=== PATIENT | female | born 1950 | race Caucasian/White ===

== ENCOUNTER 2024-01-08 07:34 | Outpatient (AMB) | payer MEDICARE, BC, SELFPAY ==
--- NOTE | 2024-01-08 07:36 | A.OFFPC_ITS ---
Vital Signs 01/08/24 07:37 Height 5 ft 4.5 in Weight 163 lb BMI 27.5 BP 118/74 Blood Pressure Location Lt brachial Position Sitting Pulse 71 Pulse Source Pulse Oximeter Pulse Oximetry (%) 97 Oxygen Delivery Method Room Air Intake Visit Reasons: PHYSICIST L[facility] AND OPTICS-req physical Intake Note: Pt is here today for New patient visit PE. Allergies amoxicillin Allergy (Verified 01/08/24 07:40) Hives Medication List - Last Reconciled 01/08/24 by Rae Childress MD azelaic acid 15% 1 appl topical BID [bio keely dhea spray PO] [calcium 600 mg x 2] clobetasol 0.05% 1 appl topical DAILY PRN [hair restore PO] ketoconazole 2% 1 appl topical BID metronidazole 0.75% 1 appl topical BID bi-Ca-isc-bexo-shtit-pbkdqmfiz 3-200-400 mg-mcg-mg tabs PO romosozumab-aqqg (Evenity) mg subcut saw palmetto PO [sciatic nerve formula PO] tocilizumab (Actemra) 162 mg subcut Q2W [virgin coconut oil 1,000 mg once a day] [viviscal PO] Tobacco use date assessed: 01/08/24 Fall risk assessment: No Falls in past year Last assessed Fall Risk: 01/08/24 Dental Screening Dental Screen Date: 01/08/24 Did you have a dental visit in the last 12 months?: Yes Did you have a dental problem in the last 6 months where you did not have access to dental care?: No Was dental information given to patient?: Patient has dentist HPI PHYSICIST LIGHT AND OPTICS-req physical HPI Details Pt presents for PHYSICIST LIGHT AND OPTICS PE. PMH includes giant cell arteritis osteoporosis and f/u with Rheumatology at [facility]. PFSH Surgical History (Updated 01/08/24 @ 08:01 by Rae Childress MD) History of bilateral carpal tunnel release History of partial hysterectomy Family History (Updated 01/08/24 @ 07:50 by Martine Hutton Abrahan) Father Diabetes Substance use disorder Mother No problems noted. Brother Cancer Social History (Updated 01/08/24 @ 08:03 by Rae Childress MD) Household Members Other:: lives with , 2 sons, Housing: House Patient Tobacco Use Status: Never used Tobacco e-Cigarette/Vaping Use: Never Used service: No Current occupational status: retired Cognitive needs: No Hearing needs: No Vision needs: Yes Questionnaire PHQ-9 Over the last 2 weeks, how often have you been bothered by any of the following problems? 1. Little interest or pleasure in doing things: not at all 2. Feeling down, depressed, or hopeless: not at all 3. Trouble falling or staying asleep, or sleeping too much: several days 4. Feeling tired or having little energy: several days 5. Poor appetite or overeating: several days 6. Feeling bad about yourself - or that you are a failure or have let yourself or your family down: not at all 7. Trouble concentrating on things, such as reading the newspaper or watching television: not at all 8. Moving or speaking so slowly that other people could have noticed. Or the opposite - being so fidgety or restless that you have been moving around a lot more than usual: not at all 9. Thoughts that you would be better off or of hurting yourself in some way: not at all Total score: 3 Depression Screening Interpretation: Negative Depression Screening Done: Yes Source: Developed by Drs. Raymundo Uriarte, Hoa Cardona, Shen Trujillo and colleagues, with an educational brittney from [employer]. Thrive Questionnaire Date Thrive assessed: 01/08/24 I am a: Patient What is your living situation today?: I have a steady place to live Within the past 12 months, did the food you bought not last and you didn't have the money to get more?: Never true Within the past 12 months, did you worry whether your food would run out before you got money to buy more?: Never true Do you have trouble paying for medicines?: No Do you have trouble getting transportation to medical appointments?: No Do you have trouble paying your heating and electricity bill?: No Do you have trouble taking care of your child, family member or friend?: No Do you have trouble with day-to-day activities such as bathing, preparing meals, shopping, managing finances, etc.?: No Are you currently unemployed and looking for a job?: No Are you interested in more education?: No Please select the resources that you would like help with: None THRIVE Score: 0 AUDIT C Alcohol Use Questionnaire (AUDIT-C) 1. How often do you have a drink containing alcohol?: Never 3. How often do you have six or more drinks on one occasion?: Never Total Score: 0 CAROL-7 AMB Questionnaire CAROL-7 Date CAROL - 7 assessed: 01/08/24 Feeling nervous, anxious, or on edge: 0 = Not at all Not being able to stop or control worryin = Not at all Worrying too much about different things: 0 = Not at all Trouble relaxin = Not at all Being so restless that it is hard to sit still: 0 = Not at all Becoming easily annoyed or irritable: 0 = Not at all Feeling afraid as if something awful might happen: 0 = Not at all Total CAROL-7 score (0-4 normal; 5-9 mild; 10-14 moderate; 15-21 severe): 0 Source: Developed by Drs. Raymundo Uriarte, Hoa Cardona, Shen Trujillo and colleagues, with an educational brittney from [employer]. Review of Systems Const All systems reviewed & are unremarkable except as noted in HPI and below Reports no additional complaints Eyes Reports no additional complaints ENT Reports no additional complaints Card Reports no additional complaints Resp Reports no additional complaints GI Reports no additional complaints Reports no additional complaints Musc Reports no additional complaints Physical exam (Primary Care) Vital Signs: Last Vital Signs Pulse 71 01/08/24 07:37 BP 118/74 01/08/24 07:37 Pulse Ox 97 01/08/24 07:37 Oxygen Delivery Method Room Air 01/08/24 07:37 BMI result Body Mass Index 27.5 Tobacco/Smoking Status: Tobacco use Status Tobacco use date assessed 01/08/24 01/08/24 07:53 Patient Tobacco Use Status Never used Tobacco 01/08/24 08:03 e-Cigarette/Vaping Use Never Used 01/08/24 08:03 PHQ-9: PHQ-9 Score PHQ-9: Total score 3 01/08/24 07:59 Depression Screening Interpretation: Negative Thrive Assessment: Date of Thrive Assessment Date Thrive assessed 01/08/24 01/08/24 07:53 Const General: well developed HENMT Head: Yes normal to inspection General nose exam: Normal external nose present Neck Neck: Yes no lymphadenopathy and Yes supple Resp Effort & Inspection: normal respiratory effort Auscultation: clear to auscultation bilaterally Cardio Rhythm: regular rhythm Heart sounds: S1 normal heart sound present and S2 normal heart sound present GI Inspection: Yes normal to inspection Palpation (GI): Soft to palpation Percussion: Yes normal to percussion Auscultation: normal bowel sounds Assessment and Plan Assessment & Plan (1) Annual physical exam: Code(s): Z00.00 - Encounter for general adult medical examination without abnormal findings Plan: Well-balanced diet regular physical activity discussed with the patient she will obtain medical records from previous PCP and public affairs manager. Obtain basic blood work today. For chronic knee pain obtain x-rays of both knees. (2) Hx of colonoscopy: Comment: 2020, Dr. Coe normal Code(s): Z98.890 - Other specified postprocedural states (3) Osteoporosis: Comment: DEXA by Rheumatology, being treated with Evenity Code(s): M81.0 - Age-related osteoporosis without current pathological fracture Plan: Obtain records from Rheumatology (4) Giant cell arteritis: Comment: 04/2023 f/u with Rheumatology Code(s): M31.6 - Other giant cell arteritis Plan: On prednisone taper by Rheumatology Orders: Orders XR knee standing BI Today M31.6 - Other giant cell arteritis, Z00.00 - Encounter for general adult medical examination without abnormal findings Comprehensive [place]. Panel Fast Today M31.6 - Other giant cell arteritis, Z00.00 - Encounter for general adult medical examination without abnormal findings TSH reflex Free T4 Today M31.6 - Other giant cell arteritis, Z00.00 - Encounter for general adult medical examination without abnormal findings Lipid Panel Today M31.6 - Other giant cell arteritis, Z00.00 - Encounter for general adult medical examination without abnormal findings Complete Blood Count Auto Diff Today M31.6 - Other giant cell arteritis, Z00.00 - Encounter for general adult medical examination without abnormal findings Vitamin D 25-OH Total Today M31.6 - Other giant cell arteritis, Z00.00 - Encounter for general adult medical examination without abnormal findings Coding Level of Care Code New Pt Prev Care >65yr (58967) Diagnoses Annual physical exam Z00.00 Hx of colonoscopy Z98.890 Osteoporosis M81.0 Giant cell arteritis M31.6
[2024-01-08 07:37] VITALS: BP 118/74; PULSE 71; O2SAT 97; BMI 27.5
== END 2024-01-08 08:17 | disposition home or self-care (01) ==
PROVIDERS: PCP Internal Medicine; Visit Provider Internal Medicine
DX: Z00.00 Encounter for general adult medical examination without abnormal findings (principal); Z98.890 Other specified postprocedural states; M81.0 Age-related osteoporosis without current pathological fracture; M31.6 Other giant cell arteritis
CPT/HCPCS: 99387

== ENCOUNTER 2024-01-08 08:19 | Outpatient (REF) | payer MEDICARE, BC, SELFPAY ==
--- NOTE | ~2024-01-08 | XR_ITS ---
EXAMINATION: XR KNEE AP STANDING CLINICAL INFORMATION: Bilateral knee pain COMPARISON: None available. TECHNIQUE: AP bilateral standing view of the knees was obtained. FINDINGS: No significant joint space narrowing in the medial or lateral compartments of either knee. No obvious fracture on this single view. XR/XR knee standing BI IMPRESSION: No significant joint space narrowing in either knee.
--- NOTE | ~2024-01-08 | XR_ITS ---
EXAMINATION: XR CHEST CLINICAL INFORMATION: General adult medical examination. COMPARISON: None available. TECHNIQUE: 2 views of the chest were obtained. FINDINGS: Prominent cardiomediastinal silhouette. Mild central bronchovascular engorgement. No dense consolidation. No pleural effusion. No pneumothorax. No acute osseous findings. Thoracic spondylosis. Visualized upper abdomen is within normal limits. XR/XR chest 2V IMPRESSION: 1. Central bronchovascular engorgement that could indicate pulmonary venous congestion. 2. No consolidation or pleural effusion. 3. Mildly prominent cardiomediastinal silhouette that reflect mild cardiomegaly. Recommend cardiology referral.
[2024-01-08 10:23] LABS: MANUAL DIFF FLAG NO
[2024-01-08 10:34] LABS: Basophils Percent Auto 0.8 % (0-2); Eosinophils Absolute Auto 0.4 X10*3/uL (0.0-0.4); Hematocrit 39.9 % (37.0-47.0); Hemoglobin 13.6 g/dl (12.0-16.0); Lymphocytes Absolute Auto 1.4 X10*3/uL (1.2-4.9); Mean Corpuscular HGB Conc 34.1 g/dl (31.0-35.0); Mean Corpuscular Hemoglobin 32.8 pg (27.0-33.0); Mean Corpuscular Volume 96.1 fL (80.0-98.0); Mean Platelet Volume 10.7 fL (9.4-12.3); Monocytes Absolute Auto 0.4 X10*3/uL (0.1-1.2); Monocytes Percent Auto 10.5 % (2-11); Neutrophils Absolute Auto 1.7 x10*3/uL (2.0-8.3); Neutrophils Percent Auto 42.7 % (45-73); Platelet Count 217 X10*3/uL (160-400); Red Blood Count 4.15 X10*6/uL (4.20-5.50); Red Cell Distribution Width 11.9 % (11.0-16.0); White Blood Count 3.9 X10*3/uL (4.8-10.8)
[2024-01-08 10:51] LABS: Alanine Aminotransferase 21 U/L (0-31); Alkaline Phosphatase 113 U/L (39-117); Anion Gap 10 (12-20); Aspartate Amino Transferase 18 U/L (5-31); Bilirubin Total 0.4 mg/dL (0.0-1.0); Blood Urea Nitrogen 12 mg/dL (9-16); Calcium 9.2 mg/dL (8.4-10.2); Carbon Dioxide 26 mmol/L (22-29); Chloride 108 mmol/L (96-108); Cholesterol 225 mg/dL (<200); Estimated Glomerular Filt Rate > 60; Glucose Fasting 99 mg/dL (60-99); HDL Cholesterol 80 mg/dL (>40); LDL Cholesterol Calculated 134 mg/dL (<100); Potassium 3.9 mmol/L (3.3-5.1); Sodium 140 mmol/L (135-145); Total Protein 6.2 g/dL (6.5-8.0); Triglycerides 56 mg/dL (<150)
[2024-01-08 10:58] LABS: TSH reflex Free T4 1.84 uIU/mL (0.32-4.0); Vitamin D 25-OH Total 37.4 ng/mL (>30)
== END 2024-01-08 08:20 | disposition home or self-care (01) ==
LOC: HO.HMGCX 08:19
PROVIDERS: PCP Internal Medicine; Visit Provider Internal Medicine
DX: M25.561 Pain in right knee (principal); M25.562 Pain in left knee; M31.6 Other giant cell arteritis; I51.7 Cardiomegaly; Z92.89 Personal history of other medical treatment; Z98.890 Other specified postprocedural states; Z13.6 Encounter for screening for cardiovascular disorders; Z00.00 Encounter for general adult medical examination without abnormal findings
CPT/HCPCS: 36415; 71046; 73565; 80053; 80061; 82306; 84443; 85025

== ENCOUNTER → 2024-01-22 12:41 | Outpatient (REF) | payer MEDICARE, BC, SELFPAY ==
--- NOTE | 2024-01-22 12:50 | CA_ITS ---
Transthoracic Echocardiogram Patient (Last, First, Middle): Cynthia Wade, Gender: Female Date of : 1950 Age: 73 Procedure Date: 01/22/2024 Procedure Type: Transthoracic Echocardiogram Location: OP Height: 162.56 cm Weight: 72.58 kg BSA: 1.78 m2 Heart Rate: bpm BP: 118 / 74 mmHg Assembly Loader: RUIZ Referring MD: Rae Childress MD Symptoms: I51.7 - Cardiomegaly Study Quality: Fair ECG Rhythm: Sinus Conclusions: - The left ventricular systolic function is normal. The calculated ejection fraction is 57% by biplane method. - No obvious valvular pathology seen on this study. Findings Left Ventricle Normal left ventricular cavity size. There is mildly increased left ventricular wall thickness. The left ventricular systolic function is normal. The calculated ejection fraction is 57% by biplane method. There is no evidence of regional wall motion abnormalities. Evidence suggests grade I (mild) diastolic dysfunction. Right Ventricle Normal right ventricular cavity size and systolic function. Atria Both atria are normal in size. Aortic Valve There is a normal trileaflet aortic valve. There is no aortic valve stenosis. There is no aortic valve regurgitation. Mitral Valve The mitral valve appears normal. There is trace mitral valve regurgitation. There is no mitral valve stenosis. Pulmonic Valve The pulmonic valve is likely normal. Tricuspid Valve There is trace tricuspid valve regurgitation. There is no evidence of pulmonary hypertension. Great Vessels The asc aorta and aortic arch are normal in size. Venous The inferior vena cava is normal in size. Pericardium/Pleural There is no evidence of pericardial effusion. Prior Study Comparison No prior study available for comparison. Recommendations, Care & Conclusions No obvious valvular pathology seen on this study. Measurements 2D Linear Measurements IVSd: 1.16 0.6-0.9/0.6-1.0 cm LVIDd: 3.99 3.9-5.3/4.2-5.9 cm LVIDd Index: 2.24 2.4-3.2/2.2-3.1 cm/m2 LVIDs: 2.76 2.0-3.6 cm LVPWd: 1.11 0.7-1.1 cm Ao Root: 3.10 2.1-3.5 cm LA Diam: 3.50 2.7-3.8/3.0-4.0 cm LAIDs Index: 1.97 1.5-2.3 cm/m2 LV Mass: 189.06 67-162/88-224 g LV Mass Index: 106.22 43-95/49-115 g/m2 LVOT Diam: 2.00 3.0+(-)1.3 cm 2D Systolic Function EF 4C: 55.80 >55% EF 2C: 58.50 >55% EF BiP: 56.90 >55% Mitral Valve MV Pk E: 0.60 MV PK A: 0.77 MV Decel Time: 331.00 E/A: 0.80 E'Lateral: 6.85 E'Medial: 4.46 E/E' Med: 13.40 E/E' Lat: 8.70 PHT: 97.00 MVA PHT: 2.27 Decel [place]: 1.80 Aortic Valve AoV Pk Param: 1.21 AoV Mn Param: 0.80 AoV VTI: 0.25 AoV Pk Grad: 6.00 Aov Mn Grad: 3.00 TONY Cont.VTI: 2.88 LVOT LVOT Pk Param: 0.93 LVOT Mn Param: 0.61 LVOT VTI: 0.23 LVOT Pk Grad: 3.00 LVOT Mn Grad: 2.00 LVOT Diam: 2.00 LVOT Area: 3.14 Diastolic Function MV Pk E: 0.60 MV Pk A: 0.77 E/A: 0.80 E'Medial: 4.46 E/E' Med: 13.40 E' Laterial: 6.85 E/E' Lat: 8.70 Right Ventricle TAPSE (mm): 19.10 TVS' Param: 10.60 Tricuspid Valve TR Pk Param: 1.83 TR Pk Grad: 13.00 RA Press: 3.00 RVSP: 16.00 Great Vessels Aorta Ao Root-2D: 3.10 2.0-3.7 cm Ao Asc: 3.00 2.1-3.4 cm Ao Arch: 2.80 Updated in Other Vendor System with Status of Final Armando Fagan MD electronically signed on 01/23/2024 12:17:42 PM with status of Final
== END ==
LOC: HO.CARD 12:41
PROVIDERS: PCP Internal Medicine; Visit Provider Internal Medicine
DX: I51.7 Cardiomegaly (principal)
CPT/HCPCS: 93306

== ENCOUNTER → 2024-01-22 12:50 | Outpatient (BNV) | payer MEDICARE, BC, SELFPAY | PROVIDERS: PCP Internal Medicine; Visit Provider Internal Medicine | DX: I51.89 Other ill-defined heart diseases (principal) | CPT/HCPCS: 93306 ==

== ENCOUNTER 2024-03-10 09:58 | Outpatient (AMB) | payer MEDICARE, BC, SELFPAY ==
[2024-03-10 10:18] VITALS: BP 118/66; PULSE 82; O2SAT 98; BMI 26.7
--- NOTE | 2024-03-10 10:18 | A.OFFPC_ITS ---
Vital Signs 03/10/24 10:18 Height 5 ft 4.5 in Weight 158 lb BMI 26.7 BP 118/66 Blood Pressure Location Rt brachial Position Sitting Pulse 82 Pulse Source Pulse Oximeter Pulse Oximetry (%) 98 Oxygen Delivery Method Room Air Intake Visit Reasons: Pre-Op Cataract extraction Intake Note: Pt is here today for a pre op visit. Pt is having cataract surgery on 04/15/24. Allergies amoxicillin Allergy (Verified 03/10/24 10:26) Hives doxycycline Allergy (Verified 03/10/24 10:26) upset stomach Medication List - Last Reconciled 03/10/24 by Rae Childress MD azelaic acid 15% 1 appl topical BID azithromycin 2 tabl qd for 1 day, then 1 qd orally; [bio keely dhea spray PO] [calcium 600 mg x 2] clobetasol 0.05% 1 appl topical DAILY PRN [hair restore PO] ketoconazole 2% 1 appl topical BID metronidazole 0.75% 1 appl topical BID ys-Tn-nrm-qnek-hbkjo-dytjcazjl 3-200-400 mg-mcg-mg tabs PO romosozumab-aqqg (Evenity) mg subcut saw palmetto PO [sciatic nerve formula PO] tocilizumab (Actemra) 162 mg subcut Q2W triamcinolone acetonide 0.025% 1 appl topical DAILY [virgin coconut oil 1,000 mg once a day] [viviscal PO] Tobacco use date assessed: 03/10/24 Dental Screening Dental Screen Date: 01/08/24 HPI Pre-Op Cataract extraction HPI Details Pt presents for pre op for cataract surgery. Pt c/o 2 days of sore throat, congestion and dry cough. Pt denies fever, chills, pleurisy. PFSH Surgical History History of bilateral carpal tunnel release History of partial hysterectomy Family History Father Diabetes Substance use disorder Mother No problems noted. Brother Cancer Social History Household Members Other:: lives with , 2 sons, Housing: House Patient Tobacco Use Status: Never used Tobacco e-Cigarette/Vaping Use: Never Used service: No Current occupational status: retired Cognitive needs: No Hearing needs: No Vision needs: Yes Questionnaire PHQ-9 Over the last 2 weeks, how often have you been bothered by any of the following problems? 1. Little interest or pleasure in doing things: not at all 2. Feeling down, depressed, or hopeless: not at all 3. Trouble falling or staying asleep, or sleeping too much: not at all 4. Feeling tired or having little energy: not at all 5. Poor appetite or overeating: not at all 6. Feeling bad about yourself - or that you are a failure or have let yourself or your family down: not at all 7. Trouble concentrating on things, such as reading the newspaper or watching television: not at all 8. Moving or speaking so slowly that other people could have noticed. Or the opposite - being so fidgety or restless that you have been moving around a lot more than usual: not at all 9. Thoughts that you would be better off or of hurting yourself in some way: not at all Total score: 0 Depression Screening Interpretation: Negative Depression Screening Done: Yes 63670 - PHQ-9 Billing: Yes Source: Developed by Drs. Raymundo Uriarte, Hoa Cardona, Shen Trujillo and colleagues, with an educational brittney from [employer]. Thrive Questionnaire Date Thrive assessed: 03/03/24 I am a: Patient What is your living situation today?: I have a steady place to live Within the past 12 months, did the food you bought not last and you didn't have the money to get more?: Never true Within the past 12 months, did you worry whether your food would run out before you got money to buy more?: Never true Do you have trouble paying for medicines?: No Do you have trouble getting transportation to medical appointments?: No Do you have trouble paying your heating and electricity bill?: No Do you have trouble taking care of your child, family member or friend?: No Do you have trouble with day-to-day activities such as bathing, preparing meals, shopping, managing finances, etc.?: No Are you currently unemployed and looking for a job?: No Are you interested in more education?: No Please select the resources that you would like help with: None Currently or been in a relationship where the following occur: No concerns reported THRIVE Score: 0 AUDIT C Alcohol Use Questionnaire (AUDIT-C) 1. How often do you have a drink containing alcohol?: Never Total Score: 0 CAROL-7 AMB Questionnaire CAROL-7 Date CAROL - 7 assessed: 03/10/24 Feeling nervous, anxious, or on edge: 0 = Not at all Not being able to stop or control worryin = Not at all Worrying too much about different things: 0 = Not at all Trouble relaxin = Not at all Being so restless that it is hard to sit still: 0 = Not at all Becoming easily annoyed or irritable: 0 = Not at all Feeling afraid as if something awful might happen: 0 = Not at all Total CAROL-7 score (0-4 normal; 5-9 mild; 10-14 moderate; 15-21 severe): 0 Source: Developed by Drs. Rayumndo Uriarte, Hoa Cardona, Shen Trujillo and colleagues, with an educational brittney from [employer]. Review of Systems Const All systems reviewed & are unremarkable except as noted in HPI and below Reports no additional complaints Eyes Reports no additional complaints ENT Reports no additional complaints Resp Reports no additional complaints GI Reports no additional complaints Reports no additional complaints Musc Reports no additional complaints Physical exam (Primary Care) Vital Signs: Last Vital Signs Pulse 82 03/10/24 10:18 BP 118/66 03/10/24 10:18 Pulse Ox 98 03/10/24 10:18 Oxygen Delivery Method Room Air 03/10/24 10:18 BMI result Body Mass Index 26.7 Tobacco/Smoking Status: Tobacco use Status Tobacco use date assessed 03/10/24 03/10/24 10:29 Patient Tobacco Use Status Never used Tobacco 03/10/24 10:18 e-Cigarette/Vaping Use Never Used 03/10/24 10:18 PHQ-9: PHQ-9 Score PHQ-9: Total score 0 03/10/24 10:31 Depression Screening Interpretation: Negative Thrive Assessment: Date of Thrive Assessment Date Thrive assessed 03/03/24 03/10/24 10:18 Currently or been in a relationship where the following occur: No concerns reported Const General: no acute distress HENMT Head: Yes normal to inspection Ears: TM's normal bilaterally Throat: Yes posterior oropharynx normal Eyes General: appearance normal, both eyes and all related structures Neck Neck: Yes no lymphadenopathy and Yes supple Resp Effort & Inspection: normal respiratory effort Auscultation: clear to auscultation bilaterally Cardio Rhythm: regular rhythm Heart sounds: S1 normal heart sound present and S2 normal heart sound present GI Inspection: Yes normal to inspection Palpation (GI): Soft to palpation Assessment and Plan Assessment & Plan (1) Cataract: Code(s): H26.9 - Unspecified cataract Plan: PATIENT IS MEDICALLY CLEARED FOR CATARACT SURGERY (2) URI (upper respiratory infection): Code(s): J06.9 - Acute upper respiratory infection, unspecified Plan: Supportive care discussed with the patient Orders: Orders SARS-CoV2/FLU/RSV Today J06.9 - Acute upper respiratory infection, unspecified Medications: New azithromycin 2 tabl qd for 1 day, then 1 qd orally; 6 tabs 0RF Coding Level of Care Code Est Pt Level 3 (31029) Diagnoses Cataract H26.9 URI (upper respiratory infection) J06.9
== END 2024-03-10 13:51 | disposition home or self-care (01) ==
PROVIDERS: PCP Internal Medicine; Visit Provider Internal Medicine
DX: H26.9 Unspecified cataract (principal); J06.9 Acute upper respiratory infection, unspecified
CPT/HCPCS: 99213

== ENCOUNTER 2024-03-10 11:33 | Outpatient (REF) | payer MEDICARE, BC, SELFPAY ==
[2024-03-10 14:29] LABS: Influenza A PCR NEGATIVE (Negative); Influenza B PCR NEGATIVE (Negative); Resp Syncy Virus RNA Qual PCR NEGATIVE (Negative); SARS COV2 PCR INHOUSE NEGATIVE (Negative)
== END 2024-03-10 11:34 | disposition home or self-care (01) ==
LOC: HO.LAB 11:33
PROVIDERS: Visit Provider Internal Medicine
DX: J06.9 Acute upper respiratory infection, unspecified (principal)
CPT/HCPCS: 0241U

== ENCOUNTER 2024-05-10 09:18 | Outpatient (AMB) | payer MEDICARE, BC, SELFPAY ==
[2024-05-10 09:29] VITALS: BP 128/78; PULSE 72; O2SAT 99; BMI 27.0
--- NOTE | 2024-05-10 09:29 | A.OFFPC_ITS ---
Vital Signs 05/10/24 09:29 Height 5 ft 4.5 in Weight 160 lb BMI 27.0 BP 128/78 Blood Pressure Location Lt brachial Position Sitting Pulse 72 Pulse Source Pulse Oximeter Pulse Oximetry (%) 99 Oxygen Delivery Method Room Air Intake Visit Reasons: 4 month follow up Intake Note: Pt is here today for 4 months follow up visit. Allergies amoxicillin Allergy (Verified 05/10/24 09:31) Hives doxycycline Allergy (Verified 05/10/24 09:31) upset stomach Medication List - Last Reconciled 05/10/24 by Rae Childress MD azelaic acid 15% 1 appl topical BID [bio keely dhea spray PO] [calcium 600 mg x 2] clobetasol 0.05% 1 appl topical DAILY PRN [hair restore PO] ketoconazole 2% 1 appl topical BID metronidazole 0.75% 1 appl topical BID hl-Sp-shg-ljac-pmieh-grqcinglr 3-200-400 mg-mcg-mg tabs PO romosozumab-aqqg (Evenity) mg subcut saw palmetto PO [sciatic nerve formula PO] taurine 1,000 mg PO DAILY tocilizumab (Actemra) 162 mg subcut Q2W triamcinolone acetonide 0.025% 1 appl topical DAILY [virgin coconut oil 1,000 mg once a day] [viviscal PO] Tobacco use date assessed: 05/10/24 Fall risk assessment: No Falls in past year Last assessed Fall Risk: 05/10/24 Dental Screening Dental Screen Date: 01/08/24 HPI 4 month follow up HPI Details Pt presents for f/u. She follows up with Rheumatology for giant cell arteritis controlled on Actemra and patient has been treated for osteoporosis w ith a Evenmarta. She is due for repeat DEXA next year. Pt c/o chronic BOYD when walking up the hill, despite being physically active regularly and walking every day. Patient denies exercise induced chest pain palpitations chronic cough or wheezing. She had a CT of the chest in the past consistent with multiple lung nodules and patient was exposed to secondhand smoking for many years. [facility] Surgical History History of bilateral carpal tunnel release History of partial hysterectomy Family History Father Diabetes Substance use disorder Mother No problems noted. Brother Cancer Social History Household Members Other:: lives with , 2 sons, Housing: House Patient Tobacco Use Status: Never used Tobacco e-Cigarette/Vaping Use: Never Used service: No Current occupational status: retired Cognitive needs: No Hearing needs: No Vision needs: Yes Questionnaire Thrive Questionnaire Date Thrive assessed: 03/03/24 I am a: Patient What is your living situation today?: I have a steady place to live Within the past 12 months, did the food you bought not last and you didn't have the money to get more?: Never true Within the past 12 months, did you worry whether your food would run out before you got money to buy more?: Never true Do you have trouble paying for medicines?: No Do you have trouble getting transportation to medical appointments?: No Do you have trouble paying your heating and electricity bill?: No Do you have trouble taking care of your child, family member or friend?: No Do you have trouble with day-to-day activities such as bathing, preparing meals, shopping, managing finances, etc.?: No Are you currently unemployed and looking for a job?: No Are you interested in more education?: No Please select the resources that you would like help with: None Currently or been in a relationship where the following occur: No concerns r eported THRIVE Score: 0 CAROL-7 AMB Questionnaire CAROL-7 Date CAROL - 7 assessed: 03/10/24 Source: Developed by Drs. Raymundo Uriarte, Hoa Cardona, Shen Trujillo and colleagues, with an educational brittney from [employer]. Review of Systems Const All systems reviewed & are unremarkable except as noted in HPI and below Eyes Reports no additional complaints ENT Reports no additional complaints Card Reports no additional complaints Resp Reports no additional complaints GI Reports no additional complaints Reports no additional complaints Physical exam (Primary Care) Vital Signs: Last Vital Signs Pulse 72 05/10/24 09:29 BP 128/78 05/10/24 09:29 Pulse Ox 99 05/10/24 09:29 Oxygen Delivery Method Room Air 05/10/24 09:29 BMI result Body Mass Index 27.0 Tobacco/Smoking Status: Tobacco use Status Tobacco use date assessed 05/10/24 05/10/24 09:35 Patient Tobacco Use Status Never used Tobacco 05/10/24 09:35 e-Cigarette/Vaping Use Never Used 05/10/24 09:35 Thrive Assessment: Date of Thrive Assessment Date Thrive assessed 03/03/24 05/10/24 09:35 Currently or been in a relationship where the following occur: No concerns reported Const General: no acute distress HENMT Ears: hearing grossly normal bilaterally Neck Neck: Yes supple Resp Effort & Inspection: normal respiratory effort Auscultation: clear to auscultation bilaterally Cardio Rhythm: regular rhythm Heart sounds: S1 normal heart sound present and S2 normal heart sound present GI Inspection: Yes normal to inspection Coding Level of Care Code Est Pt Level 4 (33373) Diagnoses Osteoporosis M81.0 Giant cell arteritis M31.6 BOYD (dyspnea on exertion) R06.09 Hx of colonoscopy Z98.890 Lung nodule, multiple R91.8 Assessment & Plan Assessment & Plan (1) Osteoporosis: Comment: DEXA by Rheumatology [facility], being treated with Evenity monthly started 06/2023 Code(s): M81.0 - Age-related osteoporosis without current pathological fracture Category: Medical Plan: Follow-up with rheumatology (2) Giant cell arteritis: Comment: 04/2023 f/u with Rheumatology Code(s): M31.6 - Other giant cell arteritis Category: Medical Plan: Follow-up with rheumatology (3) BOYD (dyspnea on exertion): Code(s): R06.09 - Other forms of dyspnea Category: Medical Plan: Obtain echocardiogram to evaluate for ejection fraction and segmental wall motion abnormalities (4) Hx of colonoscopy: Comment: 2020Dr. Coe normal Code(s): Z98.890 - Other specified postprocedural states Category: Surgical Plan: Up-to-date with colonoscopy (5) Lung nodule, multiple: Comment: on CT 2018 Code(s): R91.8 - Other nonspecific abnormal finding of lung field Category: Medical Plan: Obtain follow-up CT of the chest for multiple lung nodules Orders: Orders MM screening mammo BI Today Z12.31 - Encounter for screening mammogram for malignant neoplasm of breast CT chest wo IV con Today R91.8 - Other nonspecific abnormal finding of lung field Comprehensive [place]. Panel Fast 9 Months E55.9 - Vitamin D deficiency, unspecified, M81.0 - Age-related osteoporosis without current pathological fracture, Z00.00 - Encounter for general adult medical examination without abnormal findings Lipid Panel 9 Months E55.9 - Vitamin D deficiency, unspecified, M81.0 - Age- related osteoporosis without current pathological fracture, Z00.00 - Encounter for general adult medical examination without abnormal findings Vitamin D 25-OH Total 9 Months E55.9 - Vitamin D deficiency, unspecified, M81.0 - Age-related osteoporosis without current pathological fracture, Z00.00 - Encounter for general adult medical examination without abnormal findings CA echo transthoracic complete Today R06.09 - Other forms of dyspnea Complete Blood Count Auto Diff 9 Months E55.9 - Vitamin D deficiency, unspecified, M81.0 - Age-related osteoporosis without current pathological fracture, Z00.00 - Encounter for general adult medical examination without abnormal findings TSH reflex Free T4 9 Months E55.9 - Vitamin D deficiency, unspecified, M81.0 - Age-related osteoporosis without current pathological fracture, Z00.00 - Encounter for general adult medical examination without abnormal findings
== END 2024-05-10 10:18 | disposition home or self-care (01) ==
PROVIDERS: PCP Internal Medicine; Visit Provider Internal Medicine
DX: M81.0 Age-related osteoporosis without current pathological fracture (principal); M31.6 Other giant cell arteritis; R06.09 Other forms of dyspnea; Z98.890 Other specified postprocedural states; R91.8 Other nonspecific abnormal finding of lung field

== ENCOUNTER → 2024-05-10 09:18 | Outpatient (BNVA) | payer MEDICARE, BC, SELFPAY | PROVIDERS: PCP Internal Medicine; Visit Provider Internal Medicine | DX: M81.0 Age-related osteoporosis without current pathological fracture (principal); M31.6 Other giant cell arteritis; R91.8 Other nonspecific abnormal finding of lung field; Z98.890 Other specified postprocedural states | CPT/HCPCS: 99212 ==

== ENCOUNTER 2024-06-16 07:17 | Outpatient (REF) | payer MEDICARE, BC, SELFPAY ==
--- OUTSIDE RECORDS SUMMARY | 2024-06-16 07:20 | XMS_ITS ---
Author Name [facility] Organization Unknown History of Medication Use Medication Directions Dispensed Refills Start Date End Date Stat cyclobenzaprine (FLEXERIL) 5 MG tablet TAKE 1 TABLET BY MOUTH EVERY DAY AT BEDTIME FOR 15 DAYS NEEDED 03/02/2024 active cycloSPORINE (RESTASIS) 0.05 % ophthalmic emulsion INSTILL 1 DROP IN EACH EYE TWICE A DAY 03/02/2024 active Clobetasol Prop Emollient Base 0.05 % emollient cream Apply topically 2 (two) times a day. 03/02/2024 active azelastine (OPTIVAR) 0.05 % ophthalmic solution 1 drop 2 (two) times a day. 03/02/2024 active Problems Problem Status Onset Date Problem Type Date of Resolution Source Generalized headaches active EncounterDiagnosisAct CTTHNE MG Neck pain active EncounterDiagnosisAct CTTHNEMG Blurry vision active EncounterDiagnosisAct CTTHNEMG
== END 2024-06-16 07:18 | disposition home or self-care (01) ==
LOC: HO.CT 07:17
PROVIDERS: PCP Internal Medicine; Visit Provider Internal Medicine
DX: R91.8 Other nonspecific abnormal finding of lung field (principal)
CPT/HCPCS: 71250

== ENCOUNTER → 2024-06-16 07:19 | Outpatient (BNV) | payer MEDICARE, BC, SELFPAY | PROVIDERS: PCP Internal Medicine; Visit Provider Radiology Diagnostic Radiology | DX: R91.1 Solitary pulmonary nodule (principal) | CPT/HCPCS: 71250 ==

== ENCOUNTER 2024-06-28 12:51 | Outpatient (REF) | payer MEDICARE, BC, SELFPAY | END 2024-06-28 12:52 | disposition home or self-care (01) | LOC: HO.MAMMO 12:51 | PROVIDERS: PCP Internal Medicine; Visit Provider Internal Medicine | DX: Z12.31 Encounter for screening mammogram for malignant neoplasm of breast (principal) | CPT/HCPCS: 77063; 77067 ==

== ENCOUNTER → 2024-06-28 13:00 | Outpatient (BNV) | payer MEDICARE, BC, SELFPAY | PROVIDERS: PCP Internal Medicine; Visit Provider Internal Medicine | DX: Z12.31 Encounter for screening mammogram for malignant neoplasm of breast (principal) | CPT/HCPCS: 77063; 77067 ==

== ENCOUNTER 2024-07-27 08:25 | Outpatient (AMB) | payer MEDICARE, BC, SELFPAY ==
--- OUTSIDE RECORDS SUMMARY | 2024-07-27 08:38 | XMS_ITS | Clinical Summary ---
Author Organization [facility] Address [address] [place] [address] Care Team Providers Care Truck Rental Service Attendant Name Role Phone Saqib Rao DO Primary Care Provider Allergies No known active allergies Medications Medication Sig Dispensed Refills Start Date End Date Status cyclobenzaprine (FLEXERIL) 5 MG tablet TAKE 1 TABLET BY MOUTH EVERY DAY AT BEDTIME FOR 15 DAYS NEEDED 0 04/13/2023 Active cycloSPORINE (RESTASIS) 0.05 % ophthalmic emulsion INSTILL 1 DROP IN EACH EYE TWICE A DAY 0 02/10/2023 Active Clobetasol Prop Emollient Base 0.05 % emollient cream Apply topically 2 (two) times a day. 0 Active Calcium Carb-Cholecalcifero l 600-10 MG-MCG TABS Take 1 tablet by mouth 2 (two) times a day. 0 06/15/2023 Active Apoaequorin (PREVAGEN PO) Take 50 mcg by mouth. 0 05/12/2023 Active ergocalciferol (VITAMIN D2) capsule 84614 units Take 1 capsule (50,000 Units total) by mouth once a week. 12 capsule 0 09/14/2023 Active romosozumab-aqqg (Evenity) 105 MG/1.17ML SOSY injection Inject 2.34 mL (210 mg total) under the skin. 0 09/03/2023 Active Actemra ACTPen 162 MG/0.9ML SOAJ 0 12/11/2023 Active Social History Tobacco Use Types Packs/Day Years Used Date Smoking Tobacco: Unknown Tobacco Cessation:Counseling Given: Not Answered Sex and Gender Information Value Date Recorded Sex Assigned at Female 05/01/2023 11:24 AM EDT Gender Identity Not on file Sexual Orientation Not on file Job Start Date Occupation Industry Not on file Not on file Not on file Last Filed Vital Signs Vital Sign Reading Time Taken Comments Blood Pressure 126/77 12/21/2023 8:11 AM EDT Pulse 82 12/21/2023 8:11 AM EDT Temperature 35.9 ??C (96.7 ??F) 12/21/2023 8:11 AM ED T Respiratory Rate - - Oxygen Saturation 96% 12/21/2023 8:11 AM EDT Inhaled Oxygen Concentration - - Weight 73.1 kg (161 lb 3.2 oz) 12/21/2023 8:11 A M EDT Height 162.6 cm (5' 4 ) 12/21/2023 8:11 AM EDT Body Mass Index 27.67 12/21/2023 8:11 AM EDT Plan of Treatment Health Maintenance Due Date Last Done Comments Hepatitis C Screening 1950 COVID-19 Vaccine (#1) 04/26/1950 Depression Screening 1961 Preventative Health Evaluation 10/26/1967 DTap / Tdap / Td (1 - Tdap) 1968 Colon Cancer Screening (Colonoscopy) 1994 Breast Cancer Screening (Mammogram) 10/26/1999 Shingrix-Zoster Vaccine (1 of 2) 10/26/1999 Fall Risk Assessment 2014 Osteoporosis Screening (DEXA Scan) 2014 Pneumococcal Vaccine (1 of 1 - PCV) 2014 Influenza Vaccine (#1) 2024 RSV Adult > 60+ Yrs or Pregn ant (1 - 1-dose 75+ series) 2024 Hepatitis B Vaccines Aged Out No long er eligible based on patient's age to complete this topic RSV Ped < 20 months Aged Out No longe r eligible based on patient's age to complete this topic Care Teams Truck Rental Service Attendant Relationship Specialty Start Date End Date Saqib Rao DO [address] [place] [address] [place] [address] PCP - General Internal Medicine 05/11/23
--- OUTSIDE RECORDS SUMMARY | 2024-07-27 08:38 | XMS_ITS | Clinical Summary ---
Author Organization [facility] Address [address] [place] [address] Phone Care Team Providers Care Manager Research And Development Name Role Phone Rae Childress MD Primary Care Provider [phone] Allergies Active Allergy Reactions Criticality Noted Date Comments Amoxicillin Shortness of breath High 05/12/2023 allergic Medications Medication Sig Dispensed Refills Start Date End Date Status calcium carbonate-vit D3-min 600 mg calcium- 400 unit tablet Take 1 tablet by mouth 2 (two) times a day. 06/15/2023 Active clobetasol propionate 0.05 % cream Apply topically 2 (two) times a day. Active cycloSPORINE (RESTASIS) 0.05 % ophthalmic emulsion INSTILL 1 DROP IN EACH EYE TWICE A DAY 02/10/2023 Active ergocalciferol (VITAMIN D-2) 1,250 mcg (50,000 unit) capsule Take 1 capsule (50,000 Units total) by mouth once a week. 09/14/2023 Active romosozumab-aqqg (Evenity) Inject 2.34 mL (210 mg total) under the skin. 09/03/2023 Active tocilizumab (Actemra ACTPen) subcutaneous injection 12/11/2023 Active Encounters Date Type Department Care Team Description 05/31/2024 11:30 AM EST Office Visit [address] [address] Jamie Purvis MD Giant cell arteritis (CMS/HCC) (Primary Dx); Headache disorder 05/23/[address] [address] Jamie Purvis MD from Last 3 Months Medical History Medical History Date Comments Osteoporosis DX:Osteoporosis CRP elevated DX:CRP elevated Social History Tobacco Use Types Packs/Day Years Used Date Smoking Tobacco: Unknown Tobacco Cessation:Counseling Given: Not Answered Sex and Gender Information Value Date Recorded Sex Assigned at Not on file Gender Identity Not on file Sexual Orientation Not on file Job Start Date Occupation Industry Not on file Not on file Not on file Obstetrics History Last Filed Vital Signs Vital Sign Reading Time Taken Comments Blood Pressure 146/79 05/31/2024 11:38 AM EST Pulse 64 05/31/2024 11:38 AM EST Temperature 36.1 ??C (96.9 ??F) 05/31/2024 11:[address] Respiratory Rate - - Oxygen Saturation 99% 05/31/2024 11:38 AM EST Inhaled Oxygen Concentration - - Weight 73.1 kg (161 lb 3.2 oz) 12/21/2023 8:11 A M EDT Height 162.6 cm (5' 4 ) 12/21/2023 8:11 AM EDT Body Mass Index 27.67 12/21/2023 8:11 AM EDT Plan of Treatment Upcoming Encounters Date Type Department Care Team (Late st Contact Info) Description 05/30/2025 1:00 PM EST Office Visit [facility] [address] [place] [address] Jamie Purvis MD [address] [place] [phone] Health Maintenance Due Date Last Done Comments Breast Cancer Screening 1950 DTaP,Tdap,and Td Vaccines (1 - Tdap) 1968 Hepatitis A Vaccines (1 of 2 - Risk 2-dose series) 1968 Hepatitis B Vaccines (1 of 3 - Risk 3-dose series) 2009 Pneumococcal Vaccine: 65+ Years (2 of 2 - PPSV23 or PCV20) 04/01/2016 04/01/2015 Zoster Vaccines (2 of 2) 03/26/2020 01/30/2020 Colorectal Cancer Screening: Colonoscopy 06/01/2022 Depression Screening 06/01/2022 Falls Risk Assessment 06/01/2022 Hepatitis C Screening 06/01/2022 Medicare Annual Wellness Visit 06/01/2022 Osteoporosis Screening (Bone Density Screening) 06/01/2022 Social Influencers of Health Screening 06/01/2022 RSV Immunization Patients 60+ Years Old Completed 07/16/2023 COVID-19 Vaccine Completed 03/28/2024, , 04/07/2022, Additional history exists Influenza Vaccine Completed 03/28/2024, , 04/07/2022, Additional history exists HIB Vaccines Aged Out No longer eligi ble based on patient's age to complete this topic HPV Vaccines Aged Out No longer eligi ble based on patient's age to complete this topic IPV Vaccines Aged Out No longer eligi ble based on patient's age to complete this topic MMR Vaccines Aged Out No longer eligi ble based on patient's age to complete this topic Meningococcal ACWY Vaccine Aged Out N o longer eligible based on patient's age to complete this topic RSV Immunization Patients Under 20 months Aged Out No longer eligible based on patient's age to complete this topic Varicella Vaccines Aged Out No longer eligible based on patient's age to complete this topic Care Teams Manager Research And Development Relationship Specialty Start Date End Date Rae Childress MD [address] [place] [id number] PCP - General Internal Medicine 05/31/24
--- NOTE | 2024-07-27 08:57 | AM.OFFWIN_ITS ---
Intake Vital Signs 07/27/24 09:00 Weight 159 lb BP 112/70 Blood Pressure Location Rt brachial Position Sitting Pulse 60 Pulse Source Pulse Oximeter Temp 97.9 F Temp Source Oral Pulse Oximetry (%) 98 Oxygen Delivery Method Room Air Intake Visit Reasons: EP Covid + last week, coughing, faint/dizzy Intake Note: Patient here for cough, dizzy after coughing, swollen glands, fatigued, headaches and congestion that has been present for over 1 week. Patient Tobacco Use Status: Never used Tobacco Allergies amoxicillin Allergy (Verified 07/27/24 09:00) Hives doxycycline Allergy (Verified 07/27/24 09:00) upset stomach Do you need a note to return to daycare/school/sports/work: No HPI HPI Comments History of Present Illness Details 73 y/o female patient who presents to [facility] walk in clinic with c/o cough, chest tightness and headaches for over 1 week. She tested positive for COVID 07/19. [facility] Medical History (Updated 07/27/24 @ 09:24 by Eli Marrufo NP) SARS-CoV-2 positive Surgical History History of bilateral carpal tunnel release History of partial hysterectomy Family History Father Diabetes Substance use disorder Mother No problems noted. Brother Cancer Social History Household Members Other:: lives with , 2 sons, Housing: House Patient Tobacco Use Status: Never used Tobacco e-Cigarette/Vaping Use: Never Used service: No Current occupational status: retired Cognitive needs: No Hearing needs: No Vision needs: Yes Review of Systems Const All systems reviewed & are unremarkable except as noted in HPI and below Physical Exam Vital Signs: Last Vital Signs Temp 97.9 F 07/27/24 09:00 Pulse 60 07/27/24 09:00 BP 112/70 07/27/24 09:00 Pulse Ox 98 07/27/24 09:00 Oxygen Delivery Method Room Air 07/27/24 09:00 Const General: cooperative and no acute distress; No comfortable Orientation/consciousness: patient oriented x3 HEENT Head: Yes normocephalic Ears: external ears normal Face and sinus: Yes sinuses nontender Mouth: moist mucous membranes Resp Effort & Inspection: normal respiratory effort, able to speak in complete sentences and Actively coughing Auscultation: clear to auscultation bilaterally, no crackles, no rales, no rhonchi and no wheezes Cardio Heart sounds: S1 normal heart sound present and S2 normal heart sound present Neuro General: patient oriented x3 Assessment & Plan Assessment & Plan (1) SARS-CoV-2 positive: Code(s): U07.1 - COVID-19 Plan: Rest and hydrate well with wamr fluids. Home remedies such as Angle tea with Honey Acetaminophen for pain relief. (2) Cough: Code(s): R05.9 - Cough, unspecified Qualifiers: Cough type: acute Qualified Code(s): R05.1 - Acute cough Plan: Rest and hydrate well with wamr fluids. Home remedies such as Angle tea with Honey Acetaminophen for pain relief. Ordered Cough medicine. Medications: New prednisone 50 mg PO DAILY 5 tabs 0RF 5 days R05.1 - Acute cough, U07.1 - COVID- 19 benzonatate 100 mg PO TID 90 caps 0RF R05.1 - Acute cough dextromethorphan-guaifenesin 5-100 mg/5 mL (Robitussin Cough-Chest Congestion DM) 10 mL PO Q4-8H PRN 1,000 mL 0RF cough R05.1 - Acute cough, U07.1 - COVID-19 Coding Level of Care Code Est Pt Level 3 (46200) Diagnoses SARS-CoV-2 positive U07.1 Acute cough R05.1 Cough type: acute Time Spent (min) 15
[2024-07-27 09:00] VITALS: BP 112/70; PULSE 60; TEMP 36.6; O2SAT 98
== END 2024-07-27 09:26 | disposition home or self-care (01) ==
PROVIDERS: PCP Internal Medicine; Visit Provider Nurse Practitioner Family
DX: U07.1 COVID-19 (principal); R05.1 Acute cough

== ENCOUNTER → 2024-07-27 08:25 | Outpatient (BNVA) | payer MEDICARE, BC, SELFPAY | PROVIDERS: PCP Internal Medicine | DX: U07.1 COVID-19 (principal); R05.1 Acute cough | CPT/HCPCS: 99212 ==

== ENCOUNTER 2024-08-09 10:13 | Outpatient (REF) | payer MEDICARE, BC, SELFPAY ==
--- NOTE | ~2024-08-09 | MM_ITS ---
EXAMINATION: MM DIAGNOSTIC DIGITAL BREAST TOMOSYNTHESIS, RIGHT Limited right breast ultrasound. CLINICAL INFORMATION: Callback from screening for right asymmetry. COMPARISON: Mammography: Comparison is made with available prior examinations. TECHNIQUE: Digital breast tomosynthesis is performed in both the craniocaudal and mediolateral oblique views along with computer-aided detection (CAD). Synthesized 2D images are generated from the tomosynthesis. Limited right breast ultrasound. FINDINGS: There are scattered areas of fibroglandular density (ACR BI-RADS breast composition Category b). The previously seen asymmetry in the retroareolar region of the right breast on MLO view does not persist on additional imaging projections and likely represented overlapping breast tissue. There are no significant masses, abnormal calcifications, or other abnormalities. Targeted color Doppler ultrasound scanning in the retroareolar region and lateral breast from 8-10 o'clock and upper outer quadrant demonstrates normal fibroglandular breast tissue. MM/MM tomosynthesis added views R IMPRESSION: No mammographic or sonographic abnormality. Negative. ASSESSMENT: BI-RADS BI-RADS 1 - Negative RECOMMENDATION: 1 year F/U Results were provided to the patient at time of visit by the technologist. This patient's information was entered into a reminder system with a target due date for their next mammogram. Electronically signed by: Chantell Urbina DO 08/09/2024 11:31 AM MYRNA
--- OUTSIDE RECORDS SUMMARY | 2024-08-09 11:24 | XMS_ITS | Clinical Summary ---
Author Organization [facility] Address [address] [address] Care Team Providers Care Assistant Strength Coach Name Role Phone Saqib Rao DO Primary Care Provider [phone] Allergies No known active allergies Medications Medication [...] 0 05/12/2023 Active ergocalciferol (VITAMIN D2) capsule 76520 units Take 1 capsule (50,000 Units total) [...] age to complete this topic Care Teams Assistant Strength Coach Relationship Specialty Start Date End Date Saqib Rao DO [address] [place] [address] [place] [address] PCP - General Internal Medicine 05/11/23
--- OUTSIDE RECORDS SUMMARY | 2024-08-09 11:24 | XMS_ITS | Clinical Summary ---
Author Organization [facility] Address [address] [place] [address] Phone Care Team Providers Care Economic Research Analyst Name Role Phone Rae Childress MD Primary Care Provider [phone] Allergies Active Allergy Reactions Criticality Noted Date Comments Amoxicillin Shortness of breath High 05/12/2023 allergic Medications calcium carbonate-vit D3-min 600 mg calcium- 400 unit tablet Take 1 tablet by mouth 2 (two) times a day. 3 Active clobetasol propionate 0.05 % cream Apply topically 2 (two) times a day. Active cycloSPORINE (RESTASIS) 0.05 % ophthalmic emulsion INSTILL 1 DROP IN EACH EYE TWICE A DAY 3 Active ergocalciferol (VITAMIN D-2) 1,250 mcg (50,000 unit) capsule Take 1 capsule (50,000 Units total) by mouth once a week. 4 Active romosozumab-aqqg (Evenity) Inject 2.34 mL (210 mg total) under the skin. 4 Active tocilizumab (Actemra ACTPen) subcutaneous injection 4 Active Encounters Date Type Department Care Team Description 05/31/2024 11:30 AM EST Office Visit [address] [phone] Jamie Purvis MD Giant cell arteritis (CMS/HCC) (Primary Dx); Headache disorder 05/23/[address] [phone] Jamie Purvis MD from Last 3 Months Medical History Medical History Date Comments Osteoporosis DX:Osteoporosis CRP elevated DX:CRP elevated Social History Tobacco Use Types Packs/Day Years Used Date Smoking Tobacco: Unknown Tobacco Cessation:Counseling Given: Not Answered Comments Unknown Sex and Gender Information Value Date Recorded Sex Assigned at Not on file Legal Sex Female 12:24 AM EST Gender Identity Not on file Sexual Orientation Not on file Obstetrics History Last Filed [...] Description 05/30/2025 1:00 PM EST Office Visit [facility] [address] [place] [address] Jamie Purvis MD [address] [place] [phone] Health Maintenance Due Date Last Done Comments Breast Cancer Screening 1950 DTaP,Tdap,and Td Vaccines (1 - Tdap) 1956 Hepatitis A Vaccines (1 of 2 - Risk 2-dose series) 1968 Hepatitis B Vaccines (1 of 3 - Risk 3-dose series) 2009 Pneumococcal Vaccine: 50+ Years (2 of 2 - PPSV23) 04/01/2016 04/01/2015 Zoster Vaccines (2 of 2) [...] patient's age to complete this topic Meningococcal B Vacine Aged Out No lo nger eligible based on patient's age to complete this topic RSV Immunization Patients Under 20 months Aged Out No longer eligible based on patient's age to complete this topic Varicella Vaccines Aged Out No longer eligible based on patient's age to complete this topic Insurance MEDICARE [facility] Care Teams Economic Research Analyst Relationship Specialty Start Date End Date Rae Childress MD [address] [place] [address] PCP - General Internal Medicine 05/31/24
== END 2024-08-09 10:14 | disposition home or self-care (01) ==
LOC: HO.MAMMO 10:13
PROVIDERS: PCP Internal Medicine; Visit Provider Internal Medicine
DX: N64.89 Other specified disorders of breast (principal)
CPT/HCPCS: 76642; 77061; 77065

== ENCOUNTER → 2024-08-09 10:30 | Outpatient (BNV) | payer MEDICARE, BC, SELFPAY | PROVIDERS: PCP Internal Medicine; Visit Provider Internal Medicine | DX: R92.321 Mammographic fibroglandular density, right breast (principal) | CPT/HCPCS: 76642; 77065; G0279 ==

== ENCOUNTER 2024-12-02 08:29 | Outpatient (AMB) | payer MEDICARE, BC, SELFPAY ==
[2024-12-02 08:40] VITALS: BP 128/66; PULSE 67; RESP 20; TEMP 36.7; O2SAT 98; BMI 27.5
--- NOTE | 2024-12-02 08:40 | MHC.PC.OV ---
Vital Signs 12/02/24 08:40 Height 5 ft 4.5 in Weight 163 lb BMI 27.5 BP 128/66 Blood Pressure Location Lt brachial Position Sitting Respiration 20 Pulse 67 Pulse Source Pulse Oximeter Temp 98.0 F Temp Source Oral Pulse Oximetry (%) 98 Oxygen Delivery Method Room Air Intake Visit Reasons: dizzy Intake Note: Pt is here today for a sick visit. Pt c/o dizziness when banding down and getting up. Pt also c/o sob when walking up hill. Allergies amoxicillin Allergy (Verified 12/02/24 08:42) Hives doxycycline Allergy (Verified 12/02/24 08:42) upset stomach Medication List - Last Reconciled 12/02/24 by MD Steven Lowe.coagul,vodftzbs-mrcuze-wun C (up4 Probiotics Plus Prebiotic) PO [bio keely dhea spray PO] [calcium 600 mg x 2] dextromethorphan-guaifenesin 5-100 mg/5 mL (Robitussin Cough-Chest Congestion DM) 10 mL PO Q4-8H PRN [hair restore PO] ivermectin 1% appl topical ketoconazole 2% 1 appl topical BID il-Kx-tud-stlf-nczif-nsgxingas 3-200-400 mg-mcg-mg tabs PO saw palmetto PO [sciatic nerve formula PO] taurine 1,000 mg PO DAILY tocilizumab (Actemra) 162 mg subcut Q2W triamcinolone acetonide 0.025% 1 appl topical DAILY [virgin coconut oil 1,000 mg once a day] [viviscal PO] Tobacco use date assessed: 12/02/24 Fall risk assessment: No Falls in past year Last assessed Fall Risk: 12/02/24 Dental Screening Dental Screen Date: 12/02/24 Did you have a dental visit in the last 12 months?: Yes Did you have a dental problem in the last 6 months where you did not have access to dental care?: No Was dental information given to patient?: Patient has dentist HPI pierre HPI Details Patient presents complaining of progressively worsening dyspnea on exertion for the last few weeks. She denies chest pain on exertion palpitations PND or orthopnea. Patient has a episodes of feeling lightheaded when getting up from bed or standing up on and off. She denies cough pleurisy fever chills night sweats weight loss. Patient reports worsening heartburn and epigastric discomfort after eating becoming daily for the last few weeks. Patient denies dysphagia odynophagia hematochezia melena. Patient has a history of peptic ulcer disease and had endoscopy 3-[address] Coe. [facility] Medical History (Updated 12/02/24 @ 09:53 by Rae Childress MD) History of peptic ulcer disease GERD (gastroesophageal reflux disease) Giant cell arteritis BOYD (dyspnea on exertion) Angina pectoris SARS-CoV-2 positive Surgical History (Updated 12/02/24 @ 09:48 by Rae Childress MD) History of esophagogastroduodenoscopy (EGD) Hx of colonoscopy History of bilateral carpal tunnel release History of partial hysterectomy Family History Father Diabetes Substance use disorder Mother No problems noted. Brother Cancer Social History Household Members Other:: lives with , 2 sons, Housing: House Patient Tobacco Use Status: Never used Tobacco e-Cigarette/Vaping Use: Never Used service: No Current occupational status: retired Cognitive needs: No Hearing needs: No Vision needs: Yes Questionnaire PHQ-9 Over the last 2 weeks, how often have you been bothered by any of the following problems? 1. Little interest or pleasure in doing things: not at all 2. Feeling down, depressed, or hopeless: not at all 3. Trouble falling or staying asleep, or sleeping too much: not at all 4. Feeling tired or having little energy: not at all 5. Poor appetite or overeating: not at all 6. Feeling bad about yourself - or that you are a failure or have let yourself or your family down: not at all 7. Trouble concentrating on things, such as reading the newspaper or watching television: not at all 8. Moving or speaking so slowly that other people could have noticed. Or the opposite - being so fidgety or restless that you have been moving around a lot more than usual: not at all 9. Thoughts that you would be better off or of hurting yourself in some way: not at all Total score: 0 Depression Screening Interpretation: Negative Depression Screening Done: Yes 03297 - PHQ-9 Billing: Yes Source: Developed by Drs. Raymundo Uriarte, Hoa Cardona, Shen Trujillo and colleagues, with an educational brittney from [employer]. Thrive Questionnaire Date Thrive assessed: 12/02/24 I am a: Patient What is your living situation today?: I have a steady place to live Within the past 12 months, did the food you bought not last and you didn't have the money to get more?: Never true Within the past 12 months, did you worry whether your food would run out before you got money to buy more?: Never true Do you have trouble paying for medicines?: No Do you have trouble getting transportation to medical appointments?: No Do you have trouble paying your heating and electricity bill?: No Do you have trouble taking care of your child, family member or friend?: No Do you have trouble with day-to-day activities such as bathing, preparing meals, shopping, managing finances, etc.?: No Are you currently unemployed and looking for a job?: No Are you interested in more education?: No Please select the resources that you would like help with: None Currently or been in a relationship where the following occur: No concerns reported THRIVE Score: 0 AUDIT C Alcohol Use Questionnaire (AUDIT-C) 1. How often do you have a drink containing alcohol?: Never 3. How often do you have six or more drinks on one occasion?: Never Total Score: 0 CAROL-7 AMB Questionnaire CAROL-7 Date CAROL - 7 assessed: 12/02/24 Feeling nervous, anxious, or on edge: 0 = Not at all Not being able to stop or control worryin = Not at all Worrying too much about different things: 0 = Not at all Trouble relaxin = Not at all Being so restless that it is hard to sit still: 0 = Not at all Becoming easily annoyed or irritable: 0 = Not at all Feeling afraid as if something awful might happen: 0 = Not at all Total CAROL-7 score (0-4 normal; 5-9 mild; 10-14 moderate; 15-21 severe): 0 Source: Developed by Hoa Bernard Kurt Kroenke and colleagues, with an educational brittney from [employer]. CAROL-7 Assessment Billing CAROL-7 Assessment Tool: CAROL-7 Assessment 27146 Review of Systems Const All systems reviewed & are unremarkable except as noted in HPI and below Eyes Reports no additional complaints ENT Reports no additional complaints Card Reports no additional complaints Resp Reports no additional complaints GI Reports no additional complaints Reports no additional complaints Physical exam (Primary Care) Vital Signs: Last Vital Signs Temp 98.0 F 12/02/24 08:40 Pulse 67 12/02/24 08:40 Resp 20 12/02/24 08:40 BP 128/66 12/02/24 08:40 Pulse Ox 98 12/02/24 08:40 Oxygen Delivery Method Room Air 12/02/24 08:40 BMI result Body Mass Index 27.5 Tobacco/Smoking Status: Tobacco use Status Tobacco use date assessed 12/02/24 12/02/24 08:48 Patient Tobacco Use Status Never used Tobacco 12/02/24 08:48 e-Cigarette/Vaping Use Never Used 12/02/24 08:48 PHQ-9: PHQ-9 Score PHQ-9: Total score 0 12/02/24 08:48 Depression Screening Interpretation: Negative Thrive Assessment: Date of Thrive Assessment Date Thrive assessed 12/02/24 12/02/24 08:48 Currently or been in a relationship where the following occur: No concerns reported Const General: no acute distress HENMT Head: Yes normal to inspection Ears: hearing grossly normal bilaterally Face and sinus: Yes normal facial exam Eyes General: appearance normal, both eyes and all related structures Resp Effort & Inspection: normal respiratory effort Auscultation: clear to auscultation bilaterally Cardio Rhythm: regular rhythm Heart sounds: S1 normal heart sound present and S2 normal heart sound present GI Inspection: Yes normal to inspection Palpation (GI): Soft to palpation and Tenderness to palpation present (GI) in the epigastrum; with no rebound tenderness Percussion: Yes normal to percussion Auscultation: normal bowel sounds Coding Level of Care Code Est Pt Level 4 (54231) Diagnoses BOYD (dyspnea on exertion) R06.09 GERD (gastroesophageal reflux disease) K21.9 Giant cell arteritis M31.6 Additional Codes CAROL-7 Assessment Billing - CAROL-7 Assessment Tool: CAROL-7 Assessment 21889 ([id number]) PHQ-9 - 64435 - PHQ-9 Billing: Yes ([id number]) Assessment & Plan Assessment & Plan (1) BOYD (dyspnea on exertion): Comment: ECHO 12/2023 EJECTION FRACTION 57%, NORMAL VALVES Code(s): R06.09 - Other forms of dyspnea Category: Medical Plan: For progressively worsening dyspnea on exertion nuclear stress test will be obtained to rule out ischemia. Obtain chest x-ray and pulmonary function test (2) GERD (gastroesophageal reflux disease): Comment: Negative EGD in 2021 Code(s): K21.9 - Gastro-esophageal reflux disease without esophagitis Category: Medical Plan: Anti GERD diet and lifestyle modification discussed with the patient omeprazole 40 mg daily for 2 months as prescribed. If patient's symptoms persist she will follow-up with GI for endoscopy (3) Giant cell arteritis: Comment: 04/2023 f/u with Rheumatology, treated with Actemra Code(s): M31.6 - Other giant cell arteritis Category: Medical Plan: Follow-up with rheumatology Orders: Orders XR chest 1V Today R06.09 - Other forms of dyspnea PFT pulmonary function test Today R06.09 - Other forms of dyspnea NM cardiolite stress test Today I20.9 - Angina pectoris, unspecified, R06.09 - Other forms of dyspnea AMB EKG-In Office Today I20.9 - Angina pectoris, unspecified, I51.7 - Cardiomegaly B Type Natriuretic Peptide Today R06.09 - Other forms of dyspnea CA stress test Today I20.9 - Angina pectoris, unspecified, R06.09 - Other forms of dyspnea Complete Blood Count Auto Diff Today R06.09 - Other forms of dyspnea Comprehensive Met. Panel Today R06.09 - Other forms of dyspnea Medications: New omeprazole 40 mg PO DAILY 30 caps 1RF
== END 2024-12-02 09:46 | disposition home or self-care (01) ==
LOC: HO.HMCC 08:30
PROVIDERS: PCP Internal Medicine; Visit Provider Internal Medicine
DX: R06.09 Other forms of dyspnea (principal); K21.9 Gastro-esophageal reflux disease without esophagitis; M31.6 Other giant cell arteritis

== ENCOUNTER 2024-12-02 08:29 | Outpatient (REF) | payer MEDICARE, BC, SELFPAY ==
--- NOTE | ~2024-12-02 | XR_ITS ---
EXAMINATION: XR CHEST 2 VIEWS HISTORY: R06.09 - Other forms of dyspnea COMPARISON: Comparison is made with the prior examination dated 01/08/2024. FINDINGS: PA and lateral views of the chest are submitted. The lungs are expanded and clear. There is no pleural effusion, pneumothorax, or pulmonary vascular congestion. The heart is normal in size. There is degenerative disc disease of the spine. XR/XR chest 2V IMPRESSION: No acute cardiopulmonary abnormality. Electronically signed by: Raymundo Farias MD 12/02/2024 10:26 AM EDT
[2024-12-02 13:26] LABS: MANUAL DIFF FLAG NO
[2024-12-02 13:31] LABS: B Type Natriuretic Peptide 34 pg/mL (<100)
[2024-12-02 13:34] LABS: Eosinophils Absolute Auto 0.1 X10*3/uL (0.0-0.4); Eosinophils Percent Auto 2.6 % (0-4); Hematocrit 41.3 % (37.0-47.0); Imm Gran Abs Auto 0.01 X10*3/uL (0.00-0.03); Imm Gran Pct Auto 0.2 % (0.0-0.4); Lymphocytes Absolute Auto 1.5 X10*3/uL (1.2-4.9); Lymphocytes Percent Auto 34.5 % (20-40); Mean Corpuscular HGB Conc 33.9 g/dl (31.0-35.0); Mean Corpuscular Hemoglobin 32.6 pg (27.0-33.0); Mean Platelet Volume 10.6 fL (9.4-12.3); Monocytes Absolute Auto 0.5 X10*3/uL (0.1-1.2); Monocytes Percent Auto 12.4 % (2-11); Neutrophils Absolute Auto 2.1 x10*3/uL (2.0-8.3); Neutrophils Percent Auto 49.3 % (45-73); Platelet Count 234 X10*3/uL (160-400); Red Cell Distribution Width 11.9 % (11.0-16.0); White Blood Count 4.2 X10*3/uL (4.8-10.8)
[2024-12-02 14:26] LABS: Alanine Aminotransferase 27 U/L (0-31); Albumin Level 4.3 g/dL (3.5-5.0); Alkaline Phosphatase 43 U/L (39-117); Anion Gap 9 (12-20); Aspartate Amino Transferase 27 U/L (5-31); Bilirubin Total 0.5 mg/dL (0.0-1.0); Blood Urea Nitrogen 12 mg/dL (9-16); Calcium 9.5 mg/dL (8.4-10.2); Carbon Dioxide 26 mmol/L (22-29); Chloride 109 mmol/L (96-108); Estimated Glomerular Filt Rate > 60; Glucose Random 97 mg/dL (60-115); Potassium 4.1 mmol/L (3.3-5.1); Sodium 140 mmol/L (135-145); Total Protein 6.7 g/dL (6.5-8.0)
== END 2024-12-02 08:30 | disposition home or self-care (01) ==
LOC: HO.HMGCX 08:29
PROVIDERS: PCP Internal Medicine; Visit Provider Internal Medicine
DX: R06.09 Other forms of dyspnea (principal); K21.9 Gastro-esophageal reflux disease without esophagitis; M31.6 Other giant cell arteritis; I20.9 Angina pectoris, unspecified; I51.7 Cardiomegaly
CPT/HCPCS: 36415; 71046; 80053; 83880; 85025; 96127; 99212

== ENCOUNTER → 2024-12-02 10:06 | Outpatient (BNV) | payer MEDICARE, BC, SELFPAY | PROVIDERS: PCP Internal Medicine; Visit Provider Radiology Diagnostic Radiology | DX: R06.09 Other forms of dyspnea (principal) | CPT/HCPCS: 71046 ==

== ENCOUNTER → 2025-01-27 07:46 | Outpatient (REF) | payer MEDICARE, BC, SELFPAY ==
--- NOTE | ~2025-01-27 | NM_ITS ---
EXERCISE MYOCARDIAL PERFUSION STUDY INDICATION: Shortness of breath TECHNIQUE: The patient was brought in for an exercise perfusion study on 01/27/2025. Patient performed exercise as per Domingo protocol and was injected 25 mCi of sestamibi once target heart rate was achieved. Images were obtained using the SPECT gamma camera interlaced with the gating device. Images were obtained in supine position. Resting perfusion study was performed on 01/31/2025. Patient was administered 25 mCi of sestamibi intravenously at rest. Images were then obtained in supine position. Total DLP 81 mGy-cm. Images were processed with the software and compared side to side in short axis, horizontal long axis and vertical long axis views. FINDINGS: Raw aquisition reviewed. The stress perfusion study showed no significant perfusion abnormality. Both uncorrected as well as CT attenuation corrected images were reviewed. The gated study shows normal LV systolic function with calculated LVEF of 70%. LV cavity is normal in size. The gated study shows normal wall thickening and contraction of segments. Resting study shows no significant perfusion abnormality. Gating at rest reveals normal wall motion with ejection fraction at 66%. The findings are consistent with no clear reversible or fixed perfusion abnormality. NM/NM cardiolite stress test IMPRESSION: 1. Myocardial perfusion imaging study shows normal myocardial perfusion. 2. Gated LVEF is 70% during stress and 66% during rest. 3. Transient ischemic dilatation not present. EKG component of the test reported separately. Electronically signed by: Armando Fagan MD 02/01/2025 12:29 PM EDT
--- OUTSIDE RECORDS SUMMARY | 2025-01-27 07:48 | XMS_ITS | Clinical Summary ---
Author Organization 175 [facility] Address [address] [place] [address] Phone Care Team Providers Care Insurance Marketing Rep Name Role Phone Rae Childress MD Primary Care Provider [phone] Allergies Active Allergy Reactions Criticality Noted Date [...] tocilizumab (Actemra ACTPen) subcutaneous injection 4 Active Medical History Medical History Date Comments Osteoporosis [...] 64 05/31/2024 11:38 AM EST Temperature 36.1 C (96.9 F) 05/31/2024 11:38 AM EST Respiratory Rate - - Oxygen Saturation 99% 05/31/2024 11:38 AM EST Inhaled Oxygen Concentration - - Weight 73.1 kg (161 lb 3.2 oz) 12/21/2023 8:11 A M EDT Height 162.6 cm (5' 4 ) 12/21/2023 8:11 AM EDT Body Mass Index 27.67 12/21/2023 8:11 AM EDT Plan of Treatment Upcoming Encounters Date Type Department Care Team (Late st Contact Info) Description 05/30/2025 1:30 PM EST Office Visit [facility] [address] [place] [id number] Sara Batista PA [address] [place] [address] Health Maintenance Due Date Last Done Comments DTaP,Tdap,and Td Vaccines (1 - Tdap) 1969 Hepatitis A Vaccines (1 of 2 - Risk 2-dose series) 1968 Hepatitis B Vaccines (1 of 3 - Risk 3-dose series) 2009 Pneumococcal Vaccine: 50+ Years (2 of 2 - PPSV23) 04/01/2016 04/01/2015 Zoster Vaccines (2 of 2) 03/26/2020 01/30/2020 Colorectal Cancer Screening: Colonoscopy 06/01/2022 Falls Risk Assessment 06/01/2022 Hepatitis C Screening 06/01/2022 Medicare Annual Wellness Visit 06/01/2022 Osteoporosis Screening (Bone Density Screening) 06/01/2022 Social Influencers of Health Screening 06/01/2022 Depression Screening 06/29/2024 COVID-19 Vaccine (8 - Pfizer risk 2023- season) 2024 03/28/2024, 04/17/2023, 04/07/2022, Additional history exists Influenza Vaccine (#1) 2025 , 04/17/2023, 04/07/2022, Additional history exists RSV Immunization Adult Patients Completed 07/16/2023 HIB Vaccines Aged Out No longer eligi [...] age to complete this topic Meningococcal B Vaccine Aged Out No l onger eligible based on patient's age to complete this topic RSV Immunization Patients Under 20 months Aged Out No longer eligible based on patient's age to complete this topic Varicella Vaccines Aged Out No longer eligible based on patient's age to complete this topic Insurance [facility] [place] [id number] MEDICARE [facility] Care Teams Insurance Marketing Rep Relationship Specialty Start Date End Date Rae Childress MD [address] [place] [address] PCP - General Internal Medicine 05/31/24
--- OUTSIDE RECORDS SUMMARY | 2025-01-27 07:48 | XMS_ITS | Clinical Summary ---
Author Organization [facility] Address [address] [place] [address] Care Team Providers Care Upholsterer Inside Name Role Phone Saqib Rao DO Primary Care Provider [phone] Allergies No known active allergies Medications Medication [...] 0 05/12/2023 Active ergocalciferol (VITAMIN D2) capsule 44841 units Take 1 capsule (50,000 Units total) [...] 82 12/21/2023 8:11 AM EDT Temperature 35.9 C (96.7 F) 12/21/2023 8:11 AM EDT Respiratory Rate - - Oxygen Saturation 96% [...] Tdap) 1968 Colon Cancer Screening (Colonoscopy) 1994 Shingrix-Zoster Vaccine (1 of 2) 10/26/1999 Fall Risk Assessment 2014 Osteoporosis Screening (DEXA Scan) 2014 Pneumococcal Vaccine (1 of 1 - PCV) 2014 RSV Adult > 60+ Yrs or Pregn ant (1 - 1-dose 75+ series) 2024 Influenza Vaccine (#1) 2025 Hepatitis B Vaccines Aged Out No long er eligible based on patient's age to complete this topic RSV Ped < 20 months Aged Out No longe r eligible based on patient's age to complete this topic Care Teams Upholsterer Inside Relationship Specialty Start Date End Date Saqib Rao DO [address] [place] [address] [place] [address] PCP - General Internal Medicine 05/11/23
--- OUTSIDE RECORDS SUMMARY | 2025-01-27 07:48 | XMS_ITS ---
Author Name [facility] Organization Unknown History of Medication Use Medication Directions Dispensed Refills Start Date End Date Stat cycloSPORINE (RESTASIS) 0.05 % ophthalmic emulsion INSTILL 1 DROP IN EACH EYE TWICE A DAY 02/10/2023 active Clobetasol Prop Emollient Base 0.05 % emollient cream Apply topically 2 (two) times a day. active Problems Problem Status Onset Date Problem Type Date of Resolution Source Neck pain active EncounterDiagnosisAct CTTHNEMG Generalized headaches active EncounterDiagnosisAct CTTHNE MG Blurry vision active EncounterDiagnosisAct CTTHNEMG
--- NOTE | 2025-01-27 07:51 | CA_ITS ---
Acquisition Time: 2025-01-27 08:02:06 Total Exercise Time: 00:05:05 Test Indications: SOB Medications: SEE H&P Protocol: ANA Max HR: 131 BPM 90% of Pred: 145 BPM Max BP: 180/78 mmHG Max Work Load: 7.0 METS Exercise stress test with exercise 5 mins 5 sce sof Ana Protocol, achieving 90% MPHR, with reports of 3/10 mid chest tightness, SOB and dizziness, without any arrythmias, with normotensive response to exercise. Without any EKG changes meeting criteria for ischemia. In recovery, SOB improved quickly.Chest tightness and dizziness slowly imporved back to baseline. Nuclear images pending. Test reviewed with Dr. Ashley. Referred By: Rae Childress Electronically Signed By: Zeeshan Nguyen
== END ==
LOC: HO.CARD 07:46
PROVIDERS: PCP Internal Medicine; Visit Provider Internal Medicine
DX: R06.02 Shortness of breath (principal); I20.9 Angina pectoris, unspecified
CPT/HCPCS: 78452; 93017; A9500

== ENCOUNTER → 2025-01-27 07:51 | Outpatient (BNV) | payer MEDICARE, BC, SELFPAY | PROVIDERS: PCP Internal Medicine | DX: R06.02 Shortness of breath (principal) | CPT/HCPCS: 78452; 93016; 93018 ==

== ENCOUNTER 2025-02-23 07:46 | Outpatient (REF) | payer MEDICARE, BC, SELFPAY ==
--- OUTSIDE RECORDS SUMMARY | 2025-02-23 07:48 | XMS_ITS | Clinical Summary ---
Author Organization Former[facility] Address [address] [place] [address] Care Team Providers Care Applied Marine Physics Professor Name Role Phone Saqib Rao DO Primary Care Provider [phone] Allergies No known active allergies Medications Medication [...] 0 05/12/2023 Active ergocalciferol (VITAMIN D2) capsule 85491 units Take 1 capsule (50,000 Units total) [...] age to complete this topic Care Teams Applied Marine Physics Professor Relationship Specialty Start Date End Date Saqib Rao DO [address] [place] [address] [place] [address] PCP - General Internal Medicine 05/11/23
--- OUTSIDE RECORDS SUMMARY | 2025-02-23 07:48 | XMS_ITS | Clinical Summary ---
Author Organization 175 [facility] Address [address] [place] [address] Phone Care Team Providers Care Budget Controller Name Role Phone Rae Childress MD Primary Care Provider [phone] Allergies Active Allergy Reactions Criticality Noted Date [...] Description 05/30/2025 1:30 PM EST Office Visit [facility] [address] [facility] [address] [place] [address] Sara Batista, [address] [phone] Health Maintenance Due Date Last Done Comments [...] patient's age to complete this topic Insurance [facility] [place] [id number] MEDICARE [facility] Care Teams Budget Controller Relationship Specialty Start Date End Date Rae Childress MD [address] [facility] [place] [address] PCP - General Internal Medicine 05/31/24
--- NOTE | 2025-02-23 08:14 | PFT_ITS ---
Flows: FEV1: 103 % of predicted at 2.12 L FVC: 100 % of predicted at 2.67 L FEV1/FVC: 80 % Bronchodilator response: Absent Volumes: Total lung capacity: 89 % of predicted at 4.40 L Residual volume: 80 % of predicted at 1.66 L Slow vital capacity: 98 % of predicted at 2.73 L Expiratory reserve volume: 78 % of predicted at 0.53 L Diffusion capacity: Normal Impression: No obstructive or restrictive ventilatory defects. No bronchodilator response. Normal pulmonary function test. MTDD
[2025-02-23 08:54] VITALS: PULSE 53; O2SAT 98
== END 2025-02-23 07:47 | disposition home or self-care (01) ==
LOC: HO.RESP 07:46
PROVIDERS: PCP Internal Medicine; Visit Provider Internal Medicine
DX: R06.09 Other forms of dyspnea (principal)
CPT/HCPCS: 94010; 94640; 94727; 94729

== ENCOUNTER → 2025-02-23 08:14 | Outpatient (BNV) | payer MEDICARE, BC, SELFPAY | PROVIDERS: PCP Internal Medicine; Visit Provider Internal Medicine Pulmonary Disease | DX: R06.00 Dyspnea, unspecified (principal) | CPT/HCPCS: 94060; 94727; 94729 ==

== ENCOUNTER 2025-03-16 12:16 | Outpatient (AMB) | payer MEDICARE, BC, SELFPAY ==
[2025-03-16 12:39] VITALS: BP 120/70; PULSE 94; RESP 17; TEMP 36.8; O2SAT 97; BMI 25.0
--- NOTE | 2025-03-16 12:39 | A.OFFPC_ITS ---
Vital Signs 03/16/25 12:39 Height 5 ft 4.5 in Weight 148 lb BMI 25.0 BP 120/70 Blood Pressure Location Lt brachial Position Sitting Respiration 17 Pulse 94 Pulse Source Pulse Oximeter Temp 98.2 F Temp Source Oral Pulse Oximetry (%) 97 Oxygen Delivery Method Room Air Intake Visit Reasons: Annual PE Intake Note: Pt is here today for PE. Allergies amoxicillin Allergy (Verified 03/16/25 13:00) Hives doxycycline Allergy (Verified 03/16/25 13:00) upset stomach Medication List - Last Reconciled 03/16/25 by Rae Childress MD aloe vera PO B.coagul,qeyovcwx-ckhwmc-kvg C (up4 Probiotics Plus Prebiotic) PO [bio keely dhea spray PO] [calcium 600 mg x 2] digestive enzymes 1 tab PO DAILY [lung health oil x3] sy-Wz-kpt-wzsd-kekhy-tghccmlry 3-200-400 mg-mcg-mg tabs PO omeprazole 40 mg PO DAILY [revive hair oil] taurine 1,000 mg PO DAILY tocilizumab (Actemra) 162 mg subcut Q2W vitamin E acetate 40 mg Tobacco use date assessed: 03/16/25 Fall risk assessment: No Falls in past year Last assessed Fall Risk: 03/16/25 Dental Screening Dental Screen Date: 12/02/24 HPI Annual PE HPI Details Pt presents for PE. PFSH Medical History Cardiomegaly Osteoporosis History of peptic ulcer disease GERD (gastroesophageal reflux disease) Giant cell arteritis BOYD (dyspnea on exertion) SARS-CoV-2 positive Surgical History History of esophagogastroduodenoscopy (EGD) Hx of colonoscopy History of bilateral carpal tunnel release History of partial hysterectomy Family History Father Diabetes Substance use disorder Mother No problems noted. Brother Cancer Social History Household Members Other:: lives with , 2 sons, Housing: House Patient Tobacco Use Status: Never used Tobacco e-Cigarette/Vaping Use: Never Used service: No Current occupational status: retired Cognitive needs: No Hearing needs: No Vision needs: Yes Questionnaire Thrive Questionnaire Date Thrive assessed: 01/20/25 I am a: Patient What is your living situation today?: I have a steady place to live Within the past 12 months, did the food you bought not last and you didn't have the money to get more?: Never true Within the past 12 months, did you worry whether your food would run out before you got money to buy more?: Never true Do you have trouble paying for medicines?: No Do you have trouble getting transportation to medical appointments?: No Do you have trouble paying your heating and electricity bill?: No Do you have trouble taking care of your child, family member or friend?: No Do you have trouble with day-to-day activities such as bathing, preparing meals, shopping, managing finances, etc.?: No Are you currently unemployed and looking for a job?: No Are you interested in more education?: No Please select the resources that you would like help with: None Currently or been in a relationship where the following occur: No concerns reported THRIVE Score: 0 CAROL-7 AMB Questionnaire CAROL-7 Date CAROL - 7 assessed: 12/02/24 Source: Developed by Drs. Raymundo Uriarte, Hoa Cardona, Shen Trujillo and colleagues, with an educational brittney from [employer]. Review of Systems Const All systems reviewed & are unremarkable except as noted in HPI and below Eyes Reports no additional complaints ENT Reports no additional complaints Card Reports no additional complaints Resp Reports no additional complaints GI Reports no additional complaints Reports no additional complaints Physical exam (Primary Care) Vital Signs: Last Vital Signs Temp 98.2 F 03/16/25 12:39 Pulse 94 03/16/25 12:39 Resp 17 03/16/25 12:39 BP 120/70 03/16/25 12:39 Pulse Ox 97 03/16/25 12:39 Oxygen Delivery Method Room Air 03/16/25 12:39 BMI result Body Mass Index 25.0 Tobacco/Smoking Status: Tobacco use Status Tobacco use date assessed 03/16/25 03/16/25 13:08 Patient Tobacco Use Status Never used Tobacco 03/16/25 12:39 e-Cigarette/Vaping Use Never Used 03/16/25 12:39 Thrive Assessment: Date of Thrive Assessment Date Thrive assessed 01/20/25 03/16/25 12:39 Currently or been in a relationship where the following occur: No concerns reported Const General: no acute distress HENCT Head: Yes normal to inspection Ears: hearing grossly normal bilaterally Face and sinus: Yes normal facial exam Mouth: Normal oral and palatal mucosa present Eyes General: appearance normal, both eyes and all related structures Neck Neck: Yes no lymphadenopathy and Yes supple Resp Effort & Inspection: normal respiratory effort Auscultation: clear to auscultation bilaterally Cardio Rhythm: regular rhythm Heart sounds: S1 normal heart sound present and S2 normal heart sound present GI Inspection: Yes normal to inspection Palpation (GI): Soft to palpation Percussion: Yes normal to percussion Auscultation: normal bowel sounds Coding Level of Care Code Est Pt Prev Care >65y(05759) Diagnoses Annual physical exam Z00.00 Osteoporosis M81.0 Giant cell arteritis M31.6 Assessment & Plan Assessment & Plan (1) Annual physical exam: Code(s): Z00.00 - Encounter for general adult medical examination without abnormal findings Category: Medical Plan: Well-balanced diet regular physical activity discussed with the patient she is up-to-date with the mammogram and colonoscopy, for atrophic vaginosis estradiol vaginal cream twice a week as prescribed (2) Osteoporosis: Comment: DEXA by Rheumatology , being treated with Evenity monthly started 06/2023 for 1 year, DEXA 10/2024, Reclast inj 12/2024 Code(s): M81.0 - Age-related osteoporosis without current pathological fracture Category: Medical Plan: Patient received Reclast infusion this year follow-up for DEXA next year with rheumatology, weight-bearing exercises and vitamin-D supplement discussed with the patient (3) Giant cell arteritis: Comment: 04/2023 f/u with Rheumatology, treated with Actemra Code(s): M31.6 - Other giant cell arteritis Category: Medical Plan: Follow-up with rheumatology Orders: Orders Vitamin D 25-OH Total Today M31.6 - Other giant cell arteritis, M81.0 - Age- related osteoporosis without current pathological fracture, Z00.00 - Encounter for general adult medical examination without abnormal findings Comprehensive Superior. Panel Fast Today M31.6 - Other giant cell arteritis, M81.0 - Age-related osteoporosis without current pathological fracture, Z00.00 - Encounter for general adult medical examination without abnormal findings UA w Microscopic Today Z00.00 - Encounter for general adult medical examination without abnormal findings Lipid Panel 1 Year E55.9 - Vitamin D deficiency, unspecified, M81.0 - Age- related osteoporosis without current pathological fracture, Z00.00 - Encounter for general adult medical examination without abnormal findings Complete Blood Count Auto Diff 1 Year E55.9 - Vitamin D deficiency, unspecified , M81.0 - Age-related osteoporosis without current pathological fracture, Z00.00 - Encounter for general adult medical examination without abnormal findings TSH reflex Free T4 1 Year E55.9 - Vitamin D deficiency, unspecified, M81.0 - Age-related osteoporosis without current pathological fracture, Z00.00 - Encounter for general adult medical examination without abnormal findings Vitamin D 25-OH Total 1 Year E55.9 - Vitamin D deficiency, unspecified, M81.0 - Age-related osteoporosis without current pathological fracture, Z00.00 - Encounter for general adult medical examination without abnormal findings Lipid Panel Today M31.6 - Other giant cell arteritis, M81.0 - Age-related osteoporosis without current pathological fracture, Z00.00 - Encounter for general adult medical examination without abnormal findings Complete Blood Count Auto Diff Today M31.6 - Other giant cell arteritis, M81.0 - Age-related osteoporosis without current pathological fracture, Z00.00 - Encounter for general adult medical examination without abnormal findings Urine Culture Today Z00.00 - Encounter for general adult medical examination without abnormal findings Comprehensive Superior. Panel Fast 1 Year E55.9 - Vitamin D deficiency, unspecified, M81.0 - Age-related osteoporosis without current pathological fracture, Z00.00 - Encounter for general adult medical examination without abnormal findings Medications: New albuterol sulfate 90 mcg/actuation (Ventolin HFA) 2 puffs inhalation Q6H PRN 8.5 grams 2RF shortness of breath or wheezing estradiol 0.01%(0.1mg/gram) 1 g vaginal 2XW 42.5 grams 3RF clobetasol 0.05% 1 appl topical DAILY 15 grams 0RF
--- OUTSIDE RECORDS SUMMARY | 2025-03-16 14:28 | XMS_ITS | Clinical Summary ---
Author Organization [facility] Address [address] [place] [address] Phone Care Team Providers Care Mold Clamper Name Role Phone Rae Childress MD Primary Care Provider [phone] Allergies Active Allergy Reactions Criticality Noted Date [...] Description 05/30/2025 1:30 PM EST Office Visit [facility] [address] [place] [address] Sara Batista PA [address] [place] [address] Health Maintenance Due Date Last Done Comments [...] Vaccine (8 - Pfizer risk 2023- season) 2025 03/28/2024, 04/17/2023, 04/07/2022, Additional history exists Influenza [...] age to complete this topic Insurance [facility] [place] [id number] MEDICARE [facility] Care Teams Mold Clamper Relationship Specialty Start Date End Date Rae Childress MD [address] [place] [address] PCP - General Internal Medicine 05/31/24
--- OUTSIDE RECORDS SUMMARY | 2025-03-16 14:28 | XMS_ITS | Clinical Summary ---
Author Organization [facility] Address [address] [place] [address] Care Team Providers Care Apiculturist Name Role Phone Saqib Rao DO Primary Care Provider [phone] Allergies No known active allergies Medications Medication [...] 0 05/12/2023 Active ergocalciferol (VITAMIN D2) capsule 18273 units Take 1 capsule (50,000 Units total) [...] age to complete this topic Care Teams Apiculturist Relationship Specialty Start Date End Date Saqib Rao DO [address] [place] [address] [place] [address] PCP - General Internal Medicine 05/11/23
== END 2025-03-16 13:41 | disposition home or self-care (01) ==
PROVIDERS: PCP Internal Medicine; Visit Provider Internal Medicine
DX: Z00.00 Encounter for general adult medical examination without abnormal findings (principal); M81.0 Age-related osteoporosis without current pathological fracture; M31.6 Other giant cell arteritis

== ENCOUNTER → 2025-03-16 12:16 | Outpatient (BNVA) | payer MEDICARE, BC, SELFPAY | PROVIDERS: PCP Internal Medicine; Visit Provider Internal Medicine | DX: Z00.00 Encounter for general adult medical examination without abnormal findings (principal); M81.0 Age-related osteoporosis without current pathological fracture; M31.6 Other giant cell arteritis | CPT/HCPCS: 99397 ==

== ENCOUNTER 2025-04-07 08:49 | Outpatient (REF) | payer MEDICARE, BC, SELFPAY ==
[2025-04-07 13:11] LABS: Appearance Urine Clear; Glucose Urine UA Negative (Negative); PH 6.5 (5.0-9.0); Specific Gravity - Urine 1.010 (1.005-1.025); UMIC TRIGGER UA YES
[2025-04-07 13:17] LABS: MANUAL DIFF FLAG NO
[2025-04-07 13:23] LABS: Chlamydia pneumoniae PCR Not Detected (Not Detect.); Coronavirus 229E PCR Not Detected (Not Detect.); Coronavirus HKU1 PCR Not Detected (Not Detect.); Coronavirus NL63 PCR Not Detected (Not Detect.); Coronavirus OC43 PCR Not Detected (Not Detect.); RSV PCR Not Detected (Not Detect.); Rhino/Enterovirus PCR Detected (Not Detect.); SARS-CoV-2 PCR Not Detected (Not Detect.)
[2025-04-07 13:27] LABS: Hematocrit 43.0 % (37.0-47.0); Hemoglobin 14.3 g/dl (12.0-16.0); Imm Gran Abs Auto 0.02 X10*3/uL (0.00-0.03); Imm Gran Pct Auto 0.3 % (0.0-0.4); Lymphocytes Absolute Auto 1.1 X10*3/uL (1.2-4.9); Mean Corpuscular HGB Conc 33.3 g/dl (31.0-35.0); Mean Corpuscular Hemoglobin 31.4 pg (27.0-33.0); Mean Corpuscular Volume 94.5 fL (80.0-98.0); NRBC Abs Auto 0.000 X10*3/uL (0.0-0.012); NRBC Pct Auto 0.0 /100WBC (0.0-0.2); Platelet Count 238 X10*3/uL (160-400); Red Blood Count 4.55 X10*6/uL (4.20-5.50); White Blood Count 5.9 X10*3/uL (4.8-10.8)
[2025-04-07 13:42] LABS: Influenza A H1 PCR Not Detected (Not Detect.); Influenza A H1-2009 PCR Not Detected (Not Detect.); Influenza A H3 PCR Not Detected (Not Detect.)
[2025-04-07 14:05] LABS: Alanine Aminotransferase 36 U/L (0-31); Albumin Level 4.2 g/dL (3.5-5.0); Alkaline Phosphatase 48 U/L (39-117); Anion Gap 9 (12-20); Aspartate Amino Transferase 25 U/L (5-31); Blood Urea Nitrogen 15 mg/dL (9-16); Calcium 8.8 mg/dL (8.4-10.2); Carbon Dioxide 27 mmol/L (22-29); Chloride 108 mmol/L (96-108); Cholesterol 247 mg/dL (<200); Estimated Glomerular Filt Rate > 60; HDL Cholesterol 78 mg/dL (>40); Potassium 3.8 mmol/L (3.3-5.1); Sodium 140 mmol/L (135-145); Total Protein 6.4 g/dL (6.5-8.0); Triglycerides 67 mg/dL (<150)
== END 2025-04-07 08:50 | disposition home or self-care (01) ==
LOC: HO.HMGCLDS 08:49
PROVIDERS: Physician Assistant; PCP Internal Medicine; Visit Provider Internal Medicine
DX: Z00.00 Encounter for general adult medical examination without abnormal findings (principal); S41.101A Unspecified open wound of right upper arm, initial encounter; B97.89 Other viral agents as the cause of diseases classified elsewhere; J01.90 Acute sinusitis, unspecified; J06.9 Acute upper respiratory infection, unspecified; J02.9 Acute pharyngitis, unspecified; M81.0 Age-related osteoporosis without current pathological fracture; R09.81 Nasal congestion; R05.9 Cough, unspecified; M31.6 Other giant cell arteritis; E55.9 Vitamin D deficiency, unspecified; Z79.899 Other long term (current) drug therapy; X58.XXXA Exposure to other specified factors, initial encounter
CPT/HCPCS: 36415; 80053; 80061; 81001; 82306; 84443; 85025; 87086; 87633; 99212

== ENCOUNTER 2025-04-07 08:49 | Outpatient (AMB) | payer MEDICARE, BC, SELFPAY ==
[2025-04-07 08:54] VITALS: BP 116/64; PULSE 78; TEMP 36.7; O2SAT 98; BMI 25.3
--- NOTE | 2025-04-07 08:54 | AM.OFFWIN_ITS ---
Intake Vital Signs 04/07/25 08:54 Height 5 ft 4.5 in Weight 150 lb BMI 25.3 BP 116/64 Blood Pressure Location Lt brachial Position Sitting Pulse 78 Pulse Source Pulse Oximeter Temp 98.0 F Temp Source Oral Pulse Oximetry (%) 98 Oxygen Delivery Method Room Air Intake Visit Reasons: ep cough chest congestion Intake Note: pt presents with chest congestion and cough, sinus congestions. also c/o non healing wound right hand Patient Tobacco Use Status: Never used Tobacco Allergies amoxicillin Allergy (Verified 04/07/25 08:55) Hives doxycycline Allergy (Verified 04/07/25 08:55) upset stomach Do you need a note to return to daycare/school/sports/work: No HPI HPI Comments History of Present Illness Details History - The patient is a 74-year-old female pr esenting with symptoms of a cold and a non-healing wound on the hand. - Cold symptoms began with a sore throat 3 days ago, followed by nasal and head congestion and constant cough. The patient reports a history of bronchitis and is concerned about progression to a more severe condition. - The patient has a history of asthma, t ypically exacerbated by cold weather or physical exertion. She uses a rescue inhaler as needed, but reports limited relief from current symptoms. - The patient experiences head congestio n and mild sinus pain. - She denies fevers, shortness of breath , wheezing or ear pain. - Non-healing wound: The patient has a r ed, scabbing lesion on the base of her thumb on her right hand that has been present for several months. It bleeds and scabs over frequently, with no warmth or drainage. The patient has an upcoming dermatology appointment but it is not until June with Nelda Cowart. Physical Exam General: Cooperative, healthy appearing, comfortable and no acute distress Orientation/consciousness: Patient oriented x3 Limitations: No limitations Head: Normal to inspection Ears: Hearing grossly normal bilaterally, external ears normal and TM's normal bilaterally Nose: Normal external nose present, Normal nares present and Nasal discharge present Face and sinus: Normal facial exam and Sinuses tender Mouth: Normal oral and palatal mucosa present and moist mucous membranes Throat: Yes tonsils normal, Yes uvula midline. Posterior oropharynx erythema, no exudates Eyes: Appearance normal, both eyes and all related structures Neck: Normal visual inspection, full ROM Respiratory: Clear to auscultation bilaterally. Normal respiratory effort, able to speak in complete sentences, constant cough, no respiratory distress, not tachypneic, no tripod positioning and no use of accessory muscles Cardiovascular: Regular rate and rhythm. Normal S1 and S2 Skin: base of thumb right hand has 1cm round area of erythema with central bleeding, dark/black line on the proximal edge, no warmth noted. Neuro: Patient oriented x3 Extremities: Normal to inspection and Yes no clubbing, cyanosis or edema Review of Systems - Respiratory: Reports cough and nasal c ongestion. Denies dyspnea or productive cough. - ENT: Reports sore throat and head deni estion. Denies ear pain. All systems reviewed and are unremarkable except as noted in HPI [facility] Medical History Cardiomegaly Osteoporosis History of peptic ulcer disease GERD (gastroesophageal reflux disease) Giant cell arteritis BOYD (dyspnea on exertion) SARS-CoV-2 positive Surgical History History of esophagogastroduodenoscopy (EGD) Hx of colonoscopy History of bilateral carpal tunnel release History of partial hysterectomy Family History Father Diabetes Substance use disorder Mother No problems noted. Brother Cancer Social History Household Members Other:: lives with , 2 sons, Housing: House Patient Tobacco Use Status: Never used Tobacco e-Cigarette/Vaping Use: Never Used service: No Current occupational status: retired Cognitive needs: No Hearing needs: No Vision needs: Yes Physical Exam Vital Signs: Last Vital Signs Temp 98.0 F 04/07/25 08:54 Pulse 78 04/07/25 08:54 BP 116/64 04/07/25 08:54 Pulse Ox 98 04/07/25 08:54 Oxygen Delivery Method Room Air 04/07/25 08:54 BMI result Body Mass Index 25.3 Assessment & Plan Assessment & Plan (1) Non-healing wound of right upper extremity: Code(s): S41.101A - Unspecified open wound of right upper arm, initial encounter Plan: Non-Healing Wound On right Hand - Advise patient to expedite dermatology consultation for further evaluation due to changes in the lesion, 2 colors, bleeding, scabbing, advised if she had an issue getting her appt moved up to [facility], to call us to help expedite it. (2) Acute viral sinusitis: Code(s): J01.90 - Acute sinusitis, unspecified; B97.89 - Other viral agents as the cause of diseases classified elsewhere Plan: Plan Patient was informed and verbally consented to the use of an ambient scribe for clinic note documentation during this visit. - VSS, pt well appearing and PE remarkable for mild sinus tenderness - Conduct a respiratory panel to identify viral pathogens. - Prescribed Tessalon Perles for cough suppression, and recommend Christine D for nasal congestion. - Recommend using the rescue inhaler every four to six hours to manage potential bronchospasm. Orders: Orders Resp Pathogen Panel - [facility] Today J06.9 - Acute upper respiratory infection, unspecified Medications: New benzonatate 200 mg PO BEDTIME PRN 10 caps 0RF cough Coding Level of Care Code Est Pt Level 4 (06132) Diagnoses Non-healing wound of right upper extremity S41.101A Acute viral sinusitis J01.90; B97.89
--- OUTSIDE RECORDS SUMMARY | 2025-04-07 09:10 | XMS_ITS | Clinical Summary ---
Author Organization [facility] Address [address] [place] [address] Care Team Providers Care Net Solutions Architect Name Role Phone Saqib Rao DO Primary Care Provider [phone] Allergies No known active allergies Medications Medication [...] 0 05/12/2023 Active ergocalciferol (VITAMIN D2) capsule 83962 units Take 1 capsule (50,000 Units total) [...] age to complete this topic Care Teams Net Solutions Architect Relationship Specialty Start Date End Date Saqib Rao DO [address] [place] [address] [place] [address] PCP - General Internal Medicine 05/11/23
== END 2025-04-07 09:42 | disposition home or self-care (01) ==
PROVIDERS: PCP Internal Medicine; Visit Provider Physician Assistant
DX: S41.101A Unspecified open wound of right upper arm, initial encounter (principal); J01.90 Acute sinusitis, unspecified; B97.89 Other viral agents as the cause of diseases classified elsewhere